=== PATIENT | male | born 1950 | race Caucasian/White ===

== ENCOUNTER 2019-02-06 06:44 | Day surgery (SDC) | payer MEDICARE ==
--- NOTE | 2019-02-04 14:07 | RAD REPORT ---
EXAM DESCRIPTION: RAD - Chest Pa And Lat (2 Views) - 02/04/2019 1:57 pm CLINICAL HISTORY: preop Chest pain. COMPARISON: CHEST PA AND LAT 2 VIEW dated 11/09/2011; CHEST SINGLE VIEW dated 03/23/2005 FINDINGS: The lungs are clear. The heart is normal in size. No displaced fractures. IMPRESSION: No acute or concerning finding suspected.
[2019-02-04 14:19] LABS: Absolute Lymphocytes (CBC) 2.4 K/uL (0.7-4.9); Basophils % 0.8 % (0-1.3); Hematocrit 49.3 % (39.6-49.0); Lymphocytes % 26.7 % (15.3-44.8); MPV 8.5 fL (7.6-11.3); RBC Red Blood Cell Count 5.07 M/uL (4.33-5.43)
[2019-02-04 14:34] LABS: BUN Blood Urea Nitrogen 20 mg/dL (7-18); Bicarbonate 31 mmol/L (21-32); Glucose Level 85 mg/dL (74-106); Potassium 4.3 mmol/L (3.5-5.1); Sodium Level 143 mmol/L (136-145)
--- OUTSIDE RECORDS SUMMARY | 2019-02-06 06:46 | XMS REPORT ---
:1950 Author Organization e[employer] Care Team Providers Name Role Phone RowellLaurynh Provider Role Unavailable Allergies No Known Allergies Problems Problem Type Condition Code Onset Dates Condition Status Problem Tobacco use disorder F17.200 Active Problem Cannabis use disorder, mild F12.10 Active Problem Chronic obstructive pulmonary J44.9 Active disease Problem Adult BMI 35.0-35.9 kg/sq m Z68.35 Active Problem Microalbuminuria R80.9 Active Problem Tobacco use disorder, continuous F17.209 Active Problem Obstructive sleep apnea G47.33 Active Problem Vitamin B 12 deficiency E53.8 Active Problem Benign essential HTN I10 Active Problem Diabetes type 2, controlled E11.9 Active Problem Uncontrolled type 2 diabetes E11.65 Active mellitus with hyperglycemia, unspecified whether lobsterman insulin use Problem Hyperlipidemia, unspecified E78.5 Active hyperlipidemia type Assessment Hepatitis B surface antigen R76.8 Active positive Problem Osteoarthritis of multiple joints M15.9 Active Medications No Known Medications Results No Known Results Summary Purpose [employer] Submission
--- OUTSIDE RECORDS SUMMARY | 2019-02-06 06:46 | XMS REPORT ---
:1950 Author Organization [employer]Works Care Team Providers Name Role Phone Jack Rowell Provider Role Unavailable Allergies, Adverse Reactions, Alerts Substance Reaction Event Type N.K.D.A. Info Not Available Non Drug Allergy Problems Problem Type Condition Code Onset Dates Condition Status Problem Tobacco use disorder F17.200 Active Problem Cannabis use disorder, mild F12.10 Active Problem Chronic obstructive pulmonary J44.9 Active disease Problem Adult BMI 35.0-35.9 kg/sq m Z68.35 Active Assessment Need for pneumococcal vaccine Z23 Active Problem Microalbuminuria R80.9 Active Assessment DNR (do not resuscitate) Z66 Active Assessment Advanced directives, Z71.89 Active counseling/discussion Problem Tobacco use disorder, continuous F17.209 Active Problem Obstructive sleep apnea G47.33 Active Problem Vitamin B 12 deficiency E53.8 Active Problem Benign essential HTN I10 Active Problem Diabetes type 2, controlled E11.9 Active Assessment Tobacco use disorder, continuous F17.209 Active Assessment Screening for AAA (abdominal aortic Z13.6 Active aneurysm) Assessment Screening for colon cancer Z12.11 Active Assessment Screening for osteoporosis Z13.820 Active Problem Uncontrolled type 2 diabetes E11.65 Active mellitus with hyperglycemia, unspecified whether fci insulin use Assessment Encounter for screening for other Z11.59 Active viral diseases Problem Hyperlipidemia, unspecified E78.5 Active hyperlipidemia type Assessment Well adult on routine health check Z00.00 Active Problem Osteoarthritis of multiple joints M15.9 Active Medications Medication Code Code Instructions Start End Status Dosage System Date Date Metformin HCl ND 92631365371 1000 MG Orally Active 1 tablet Twice a day with meals Ventolin HFA ND 38460050093 90 MCG/ACT Active 2 puffs as Inhalation every needed 6 hrs Simvastatin ND 51792536297 10 MG Orally Active 1 tablet Once a day in the evening GlipiZIDE ND 24902619742 5 MG Orally Once Active 1 tablet a day Lisinopril ND 07555897933 10 MG Orally Active 1 tablet Once a day Bevespi ND 15865841978 9-4.8 MCG/ACT Active 2 puffs Aerosphere Inhalation Twice a day Viagra [facility] 78268761006 100 MG Orally Active 1 tablet Once a day as needed Results No Known Results Immunizations Vaccine Administration Date PNEUMAVAX Jul 04, 2018 Summary Purpose [employer]ClinicalWorks Submission
--- OUTSIDE RECORDS SUMMARY | 2019-02-06 06:46 | XMS REPORT ---
:1950 Author Organization eClinicalWorks Care Team Providers Name Role Phone Jack Rowell Provider Role Unavailable Allergies, Adverse Reactions, Alerts Substance Reaction Event Type N.K.D.A. Info Not Available Non Drug Allergy Problems Problem Type Condition Code Onset Dates Condition Status Problem Osteoarthritis of multiple joints M15.9 Active Problem Chronic obstructive pulmonary J44.9 Active disease Problem Tobacco use disorder F17.200 Active Problem Microalbuminuria R80.9 Active Assessment Hyperlipidemia, unspecified E78.5 Active hyperlipidemia type Problem Benign essential HTN I10 Active Assessment Adult BMI 35.0-35.9 kg/sq m Z68.35 Active Assessment Need for influenza vaccination Z23 Active Problem Adult BMI 35.0-35.9 kg/sq m Z68.35 Active Problem Vitamin B 12 deficiency E53.8 Active Problem Cannabis use disorder, mild F12.10 Active Problem Diabetes type 2, controlled E11.9 Active Problem Obstructive sleep apnea G47.33 Active Assessment Benign essential HTN I10 Active Assessment Microalbuminuria R80.9 Active Assessment Cannabis use disorder, mild F12.10 Active Assessment Obstructive sleep apnea G47.33 Active Assessment Chronic obstructive pulmonary J44.9 Active disease Assessment Tobacco use disorder F17.200 Active Problem Uncontrolled type 2 diabetes E11.65 Active mellitus with hyperglycemia, unspecified whether meterman insulin use Assessment Need for pneumococcal vaccine Z23 Active Assessment Uncontrolled type 2 diabetes E11.65 Active mellitus with hyperglycemia, unspecified whether meterman insulin use Problem Hyperlipidemia, unspecified E78.5 Active hyperlipidemia type Medications Medication Code Code Instructions Start End Status Dosage System Date Date GlipiZIDE [facility] 42924887889 5 MG Orally Inactive 1 tablet Once a day Metformin HCl [facility] 32454938897 1000 MG Orally Active 1 tablet Twice a day with meals Viagra [facility] 30905859202 100 MG Orally Active 1 tablet Once a day as needed Bevespi [facility] 76877735727 9-4.8 MCG/ACT Jun 29, Active 2 puffs Aerosphere Inhalation 2019 Twice a day Chantix [facility] [address]-97 0.5 MG X 11 & 1 Inactive not Starting Month MG X 42 Orally defined Niels Lisinopril [facility] 18062965959 10 MG Orally Active 1 tablet Once a day Simvastatin [facility] 70028831915 10 MG Orally Active 1 tablet Once a day in the evening Lisinopril [facility] 40031620656 10 MG Orally Active 1 tablet Once a day Ventolin HFA [facility] 26584503531 90 MCG/ACT Active 2 puffs Inhalation as needed every 6 hrs Simvastatin [facility] 78291807909 10 MG Orally Active 1 tablet Once a day in the evening GlipiZIDE [facility] 66625014248 5 MG Orally Active 1 tablet Once a day Results No Known Results Immunizations Vaccine Administration Date FluAD Mar 01, 2018 Prevnar 13 -Pneumonia Vaccine Mar 01, 2018 Summary Purpose eClinicalWorks Submission
--- OUTSIDE RECORDS SUMMARY | 2019-02-06 06:46 | XMS REPORT ---
:1950 Author Organization eClinicalWorks Care Team Providers Name Role Phone Sorin Jack Provider Role Unavailable Allergies, Adverse Reactions, Alerts [...] BMI 35.0-35.9 kg/sq m Z68.35 Active Problem Adult BMI 35.0-35.9 kg/sq m [...] E11.65 Active mellitus with hyperglycemia, unspecified whether terminologist insulin use Assessment Uncontrolled type 2 diabetes E11.65 Active mellitus with hyperglycemia, unspecified whether terminologist insulin use Problem Hyperlipidemia, unspecified E78.5 Active hyperlipidemia type Medications Medication Code Code Instructions Start End Status Dosage System Date Date Bevespi [facility]NOTE 2] 38248967746 9-4.8 MCG/ACT Active 2 puffs Aerosphere Inhalation Twice a day Simvastatin [facility]NOTE 2] 07743178795 10 MG Orally Active 1 tablet Once a day in the evening Simvastatin [facility]NOTE 2] 53079950579 10 MG Orally Active 1 tablet Once a day in the evening GlipiZIDE [facility]NOTE 2] 78309136624 5 MG Orally Once Active 1 tablet a day Metformin HCl [facility]NOTE 2] 00714968840 1000 MG Orally Active 1 tablet Twice a day with meals Viagra [facility]NOTE 2] 45762847231 100 MG Orally Active 1 tablet Once a day as needed Lisinopril [facility]NOTE 2] 80706287904 10 MG Orally Active 1 tablet Once a day Ventolin HFA [facility][NOTE 2] 34992510194 90 MCG/ACT Active 2 puffs as Inhalation every needed 6 hrs Results No Known Results Summary Purpose [employer]ClinicalWorks Submission
--- OUTSIDE RECORDS SUMMARY | 2019-02-06 06:47 | XMS REPORT ---
:1950 Author Organization eClinicalWorks Care Team Providers Name Role Phone Sorin Jack Provider Role Unavailable Allergies No Known Allergies Problems Problem Type Condition Code Onset Dates Condition Status Problem Chronic obstructive pulmonary J44.9 Active disease Problem Vitamin B 12 deficiency E53.8 Active Problem Cannabis use disorder, mild F12.10 Active Problem Uncontrolled type 2 diabetes E11.65 Active mellitus with hyperglycemia, unspecified whether long-term insulin use Problem Hyperlipidemia, unspecified E78.5 Active hyperlipidemia type Problem Osteoarthritis of multiple joints M15.9 Active Problem Tobacco use disorder F17.200 Active Problem Tobacco use disorder, continuous F17.209 Active Problem Adult BMI 35.0-35.9 kg/sq m Z68.35 Active Problem Chronic hepatitis B virus infection B18.1 Active Problem Diabetes type 2, controlled E11.9 Active Problem Obstructive sleep apnea G47.33 Active Problem Microalbuminuria R80.9 Active Problem Benign essential HTN I10 Active Medications No Known Medications Results No Known Results Summary Purpose [employer] Submission
--- OUTSIDE RECORDS SUMMARY | 2019-02-06 06:47 | XMS REPORT ---
:1950 Author Organization eClinicalWorks Care Team Providers Name Role Phone Lauryn Rowellh Provider Role Unavailable Allergies, Adverse Reactions, Alerts Substance Reaction Event Type N.K.D.A. Info Not Available Non Drug Allergy Problems Problem Type Condition Code Onset Dates Condition Status Problem Tobacco use disorder F17.200 Active Problem Cannabis use disorder, mild F12.10 Active Problem Chronic obstructive pulmonary J44.9 Active disease Problem Adult BMI 35.0-35.9 kg/sq m Z68.35 Active Assessment Obstructive sleep apnea G47.33 Active Problem Microalbuminuria R80.9 Active Assessment Cannabis use disorder, mild F12.10 Active Assessment Hyperlipidemia, unspecified E78.5 Active hyperlipidemia type Problem Tobacco use disorder, continuous F17.209 Active Problem Obstructive sleep apnea G47.33 Active Problem Vitamin B 12 deficiency E53.8 Active Problem Benign essential HTN I10 Active Problem Diabetes type 2, controlled E11.9 Active Assessment Tobacco use disorder F17.200 Active Assessment Uncontrolled type 2 diabetes E11.65 Active mellitus with hyperglycemia, unspecified whether ocean transportation intermediary insulin use Assessment Benign essential HTN I10 Active Assessment Microalbuminuria R80.9 Active Problem Uncontrolled type 2 diabetes E11.65 Active mellitus with hyperglycemia, unspecified whether snf insulin use Assessment Hepatitis B surface antigen R76.8 Active positive Problem Hyperlipidemia, unspecified E78.5 Active hyperlipidemia type Assessment Adult BMI 35.0-35.9 kg/sq m Z68.35 Active Assessment Chronic obstructive pulmonary J44.9 Active disease Problem Osteoarthritis of multiple joints M15.9 Active Medications Medication Code Code Instructions Start End Status Dosage System Date Date Lisinopril ND 36855565343 10 MG Orally Active 1 tablet Once a day Simvastatin ND 67096950296 10 MG Orally Active 1 tablet Once a day in the evening Ventolin HFA ND 69813325215 90 MCG/ACT Active 2 puffs as Inhalation every needed 6 hrs Bevespi ND 63788576342 9-4.8 MCG/ACT Active 2 puffs Aerosphere Inhalation Twice a day Metformin HCl ND 16613381049 1000 MG Orally Active 1 tablet Twice a day with meals Lisinopril [facility] 74214264417 10 MG Orally Active 1 tablet Once a day GlipiZIDE [facility] 54150400253 5 MG Orally Once Active 1 tablet a day Results No Known Results Summary Purpose [employer]ClinicalWorks Submission
--- OUTSIDE RECORDS SUMMARY | 2019-02-06 06:47 | XMS REPORT ---
:1950 Author Organization eClinicalWorks Care Team Providers Name Role Phone Lauryn Rowellh Provider Role Unavailable Allergies, Adverse Reactions, Alerts Substance Reaction Event Type N.K.D.A. Info Not Available Non Drug Allergy Problems Problem Type Condition Code Onset Dates Condition Status Assessment Single skin nodule R22.9 Active Problem Osteoarthritis of multiple joints M15.9 Active Assessment Adult BMI 27.0-27.9 kg/sq m Z68.27 Active Problem Tobacco use disorder F17.200 Active Assessment Hyperlipidemia, unspecified E78.5 Active hyperlipidemia type Problem Chronic obstructive pulmonary J44.9 Active disease Problem Vitamin B 12 deficiency E53.8 Active Problem Cannabis use disorder, mild F12.10 Active Problem Tobacco use disorder, continuous F17.209 Active Problem Adult BMI 35.0-35.9 kg/sq m Z68.35 Active Assessment Benign essential HTN I10 Active Assessment Obstructive sleep apnea G47.33 Active Problem Chronic hepatitis B virus infection B18.1 Active Assessment Cannabis use disorder, mild F12.10 Active Problem Diabetes type 2, controlled E11.9 Active Problem Obstructive sleep apnea G47.33 Active Problem Microalbuminuria R80.9 Active Problem Benign essential HTN I10 Active Assessment Uncontrolled type 2 diabetes E11.65 Active mellitus with hyperglycemia, unspecified whether fpc insulin use Assessment Hepatitis B surface antigen R76.8 Active positive Assessment Microalbuminuria R80.9 Active Assessment Tobacco use disorder F17.200 Active Problem Uncontrolled type 2 diabetes E11.65 Active mellitus with hyperglycemia, unspecified whether termite exterminator insulin use Problem Hyperlipidemia, unspecified E78.5 Active hyperlipidemia type Assessment Chronic obstructive pulmonary J44.9 Active disease Medications Medication Code Code Instructions Start End Status Dosage System Date Date Ventolin HFA [facility] 35487821346 90 MCG/ACT Active 2 puffs as Inhalation every needed 6 hrs Metformin HCl [facility] 66781153770 1000 MG Orally Active 1 tablet Twice a day with meals Metformin HCl [facility] 23573686931 1000 MG Orally Active 1 tablet Twice a day with meals Simvastatin [facility] 35291648308 10 MG Orally Active 1 tablet Once a day in the evening Bevespi [facility] 84807856133 9-4.8 MCG/ACT Apr 27, Active 2 puffs Aerosphere Inhalation Twice 2019 a day Lisinopril [facility] 31718188127 10 MG Orally Active 1 tablet Once a day GlipiZIDE [facility] 63215392851 5 MG Orally Once Active 1 tablet a day Lisinopril [facility] 38817493092 10 MG Orally Active 1 tablet Once a day Results No Known Results Summary Purpose eClinicalWorks Submission
--- OUTSIDE RECORDS SUMMARY | 2019-02-06 06:47 | XMS REPORT ---
:1950 Author Organization eClinicalWorks Care Team Providers Name Role Phone Jack Rowell Provider Role Unavailable Allergies No Known Allergies [...] Problem Benign essential HTN I10 Active Assessment Chronic obstructive pulmonary J44.9 Active disease Problem Uncontrolled type 2 diabetes E11.65 Active mellitus with hyperglycemia, unspecified whether mcfp insulin use Problem Hyperlipidemia, unspecified E78.5 Active hyperlipidemia type Assessment Chronic hepatitis B virus infection B18.1 Active Problem Osteoarthritis of multiple joints M15.9 Active Problem Tobacco use disorder F17.200 Active Medications Medication Code Code Instructions Start End Date Status Dosage [facility] 9-4.8 MCG/ACT Active 2 puffs Aerosphere Inhalation Twice a day Results No Known Results Summary Purpose eClinicalWorks Submission
[2019-02-06] MEDS: NA CHLORIDE 0.9% 1,000 ML ONE ×2 (07:33→07:51)
[2019-02-06] MEDS ORDERED: MIDAZOLAM HCL 2 MG/2 ML INJ ONE (07:49)
[2019-02-06] MEDS ORDERED: LIDOCAINE 2% MPF 5 ML VIAL ONE (07:49)
[2019-02-06] MEDS ORDERED: PROPOFOL 200 MG/20 ML VIAL IV ONE (07:49)
[2019-02-06] MEDS ORDERED: FENTANYL CITR 100 MCG/2 ML ONE (07:49)
[2019-02-06] MEDS ORDERED: ROCURONIUM 50 MG/5 ML VIAL IV ONE (07:49)
[2019-02-06] MEDS ORDERED: CEFAZOLIN/SWI 1gm 1 GM/10 ML SYR ONE (07:51)
[2019-02-06] MEDS ORDERED: ONDANSETRON 4 MG/2 ML VIAL ONE (08:37)
[2019-02-06 09:21] VITALS: O2SAT 96
[2019-02-06 10:07] VITALS: BP 117/65; TEMP 97.8
--- NOTE | 2019-02-06 14:34 | OP ---
Surgeon: Chaparro Brown MD Diagnosis: Left breast mass with skin involvement. Procedure: Left breast lumpectomy. Disposition: Home. Activity: As tolerated. No heavy lifting. Followup: Follow up in my office in 1 week. Call for appointment [phone]. Keep area dry for 48 ho urs, then may shower. Keep Steri-Strips intact. Medications: See orders. JORGE LUIS/EDWINA Voice ID: [id number] Report ID: [id number]
--- NOTE | 2019-02-06 14:44 | OP ---
Date of Procedure: 02/06/2019 Surgeon: Chaparro Brown MD Preoperative Diagnosis: Left breast ulcerated mass. Postoperative Diagnosis: Left breast ulcerated mass. Procedure: Left breast lumpectomy. Anesthesia: Local. Indications: This is the case of a 68-year-old patient, comes to us with an ulcerated mass of the le ft breast region, involved part of the skin and part of the breast area. No previous lump in that re gion. It is getting redder on and off and he wants that excised. He understand the benefits, altern atives, and risks of lumpectomy which include, but not limited to infection, bleeding, damage to nellie cent structures, anesthesia complication, recurrence, MS, and even . He also understands this m ay not relieve the symptoms. He might need more than one surgical intervention. Some of the skin baig ve to be removed with the specimen and this included on the specimen. He understands we are doing th is because it is important to have a biopsy, but eventually if he allow us, we may have to do the for mal mammogram, although he preferred not to do it at this moment. He preferred to this first. In th at case, we will look him for the surgical intervention. He marked the area with me in the holding r oom. Description Of Procedure: Patient was brought to the operating room, placed in supine position. Ane sthesia was done without complication. Left breast was prepped and draped in sterile fashion. A wed ge incision was made on the skin after time-out was called. Incision was carried down to breast tiss ue. Specimen was marked for orientation. Area was irrigated profusely. I do not see any pus at thi s time. So, we proceeded to close the area by using 3-0 chromic. Steri-Strip over the area. Hemost asis was obtained before closure and also a local anesthetic was applied before closure. Patient tolerated the procedure well. Patient was sent to [place] [facility] in stable condition. JORGE LUIS/EDWINA Voice ID: [id number] Report ID: [id number]
--- NOTE | 2019-02-06 15:59 | EKG ---
Test Date: 2019-02-04 Test Time: 13:52:36 Traffic Or System Dispatcher: TATE MEASUREMENT RESULTS: Intervals: Rate: 54 MO: 182 QRSD: 86 QT: 418 QTc: 396 [place]: P: 53 MO: 182 QRS: 67 T: 62 INTERPRETIVE STATEMENTS: Sinus bradycardia Otherwise normal ECG Compared to ECG 03/17/2005 11:00:00 Sinus rhythm no longer present Right-axis deviation no longer present Myocardial infarct finding no longer present T-wave abnormality no longer present Possible ischemia no longer present Electronically Signed On 02-06-19 15:54:45 CDT by Carl Mercedes
== END 2019-02-06 10:05 | disposition home or self-care (01) ==
LOC: OR 06:44
PROVIDERS: ATTEND Surgery
PROC: 0HBU0ZZ Excision of Left Breast, Open Approach (ICD-10-PCS; principal; 2019-02-06 08:15)
DX: N63.24 Unspecified lump in the left breast, lower inner quadrant (principal); L85.8 Other specified epidermal thickening; E11.9 Type 2 diabetes mellitus without complications; I10 Essential (primary) hypertension; J43.9 Emphysema, unspecified; J44.9 Chronic obstructive pulmonary disease, unspecified; F17.210 Nicotine dependence, cigarettes, uncomplicated
CPT/HCPCS: 36415; 71046; 80048; 82962; 85025; 88305; 93005; J0690; J2250; J2405; J2704; J3010; J7030

== ENCOUNTER 2021-07-22 09:31 | Inpatient (IN) | payer MEDICARE, OTHER ==
--- OUTSIDE RECORDS SUMMARY | 2021-07-22 09:33 | XMS REPORT | Continuity of Care Document ---
:1950 Author Organization [facility] t Address [address] [place] [address] Care Team Providers Name Role Phone Ewelina Rowell Attending Clinician Unavailable Problems This patient has no known problems. Allergies, Adverse Reactions, Alerts This patient has no known allergies or adverse reactions. Medications Ordered Filled Start Stop Current Ordering Indication Dosage Frequency Signature Comments Components Source Medication Medication Date Date Medication? Clinician (SIG) Name Name Ventolin Ventolin Yes Jack [address] [facility] HFA HFA Rowell needed [facility] Lisinopril Lisinopril Yes Jack [address] [facility] Rowell [facility] Metformin Metformin Yes Jack [address] [facility] HCl HCl Rowell with meals [facility] Simvastatin Simvastatin Yes Jack TAKE [address] [facility] Rowell TABLET BY [facility] l [facility] Bevespi Bevespi Yes Jack [address] [facility] [employer] Rowell [facility] Metformin Metformin Yes Jack [address] [facility] HCl HCl Rowell with meals [facility] Immunizations Ordered Filled Immunization Date Status Comments Sourc e Immunization Name Name FluAD FluAD 2019-04-[address] [facility] PNEUMAVAX 23 PNEUMAVAX 23 2018-07-[address] [facility]00 [facility] FluAD FluAD 2018-03-[address] [facility]00 [facility] Prevnar 13 Prevnar 13 2018-03-[address] [facility] - -Pneumonia Vaccine -Pneumonia Vaccine 00:00:00 [facility] Procedures This patient has no known procedures. Encounters Start End Encounter Admission Attending Care Care Encounter Source Date/Time Date/Time Type Type Clinicians Facility Department ID 2021-06-23 Outpatient NAIDA Rowell [facility] [id number] [facility] 12:22:58 Jack [id number] [facility] 2021-06-[address] SorinJOSSELYN [facility] [id number] [facility] [address] 11:17:26 Jack [id number] [facility] 2021-06-23 Outpatient Sorin [facility] [id number] [facility] [address] 11:16:19 Jack [id number] [facility] 2021-03-25 2021-03-25 Outpatient [facility] [id number] [facility] 2020-12-28 2020-12-28 Outpatient [facility] [id number] [facility] 2020-12-23 2020-12-23 [facility] [id number] [facility] 2020-09-22 2020-09-22 [facility] [id number] [facility] 2020-06-18 2020-06-18 Outpatient [facility] [id number] [facility] 2020-03-02 2020-03-02 [facility] [id number] [facility] 2019-11-28 2019-11-28 [facility] [id number] [facility] 08:00:00 08:00:00 [employer] [facility] 2019-09-03 2019-09-03 [facility] [id number] [address] 14:45[facility] 14:45:[address] [place] [address] [facility] [address] [facility] l Medicine Outpati ent Clinics 2019-07-31 2019-07-31 [facility] [id number] [address] 08:45:00 08:45:00 [place] [email or web address] [facility] - [facility] Medicine l Medicine Outpati ent Clinics 2019-04-01 2019-04-01 [facility] [id number] 08:45:00 08:45:00 [place] [email or web address] [place] [facility] - Drive [facility] l Medicine Outpati ent Clinics 2018-12-28 2018-12-28 [facility] [id number] 08:00:00 08:00:00 [place] [email or web address] s - Drive [facility] Medicine l Medicine Outpati ent Clinics 2018-11-09 2018-11-09 [facility] [id number] 07:31:00 07:31:00 [place] [address] s - Drive [facility] Medicine l Medicine Outpati ent Clinics 2018-09-28 2018-09-28 [facility] [id number] 07:32:00 07:32:00 [place] [email or web address] [facility] - Drive [facility] Medicine l Medicine Outpati ent Clinics 2018-09-27 2018-09-27 [facility] [id number] 08:30:00 08:30:00 [place] [email or web address] [facility] - Drive [facility] Medicine l Medicine Outpati ent Clinics 2018-09-26 2018-09-26 [facility] [id number] 09:29:00 09:29:00 [place] [email or web address] [facility] - Drive [facility] Medicine l Medicine Outpati ent Clinics 2018-07-04 2018-07-04 [facility] [id number] 09:00:00 09:00:00 [place] [email or web address] [facility] - Drive [facility] Medicine l Medicine Outpati ent Clinics 2018-06-01 2018-06-01 [facility] [id number] 08:45:00 08:45:00 [place] [email or web address] [facility] - Drive [facility] Medicine l Medicine Outpati ent Clinics 2018-03-01 2018-03-01 Outpatient Juani Vasquez [id number] 08:15:00 08:15:00 [email or web address] [facility] [place] ent Clinics Results This patient has no known results.
[2021-07-22] MEDS ORDERED: ALBUTEROL 2.5 MG/3 ML NEB SOL ONE (10:16)
[2021-07-22] MEDS ORDERED: IPRATROPIUM BROM 0.5MG/2.5ML ONE (10:16)
[2021-07-22 10:19] LABS: Absolute Lymphocytes (CBC) 0.8 K/uL (0.7-4.9); Hematocrit 54.3 % (39.6-49.0); Lymphocytes % 8.4 % (15.3-44.8); MPV 7.8 fL (7.6-11.3); RBC Red Blood Cell Count 5.54 M/uL (4.33-5.43)
[2021-07-22 10:22] LABS: Protime INR 1.16
[2021-07-22 10:37] LABS: Albumin 3.1 g/dL (3.4-5.0); Bilirubin Direct 0.3 mg/dL (0-0.2); Bilirubin Total 0.6 mg/dL (0.2-1.0); Magnesium 2.5 mg/dL (1.8-2.4); Potassium 4.9 mmol/L (3.5-5.1); Protein, Total 7.1 g/dL (6.4-8.2); Troponin High Sensitivity 34.4 pg/mL (<58.9)
--- NOTE | 2021-07-22 10:47 | RAD REPORT ---
EXAM DESCRIPTION: RAD - Chest Single View - 07/22/2021 10:42 am CLINICAL HISTORY: SOB COMPARISON: Two view chest January 2009 TECHNIQUE: AP portable chest image was obtained 07/22/2021 10:42 am . FINDINGS: No focal mass or consolidation. Increased interstitial opacification present in each base could be atelectasis, lung base edema or infiltrate. Upper lobe vasculature within normal limits. Hea rt size normal limits for portable imaging. No pneumothorax or large pleural effusion. No acute bony abnormality seen. No acute aortic findings suspected. IMPRESSION: Bibasilar interstitial opacification suspicious for edema or infiltrate. Findings are mo re prominent than typical atelectasis.
--- NOTE | 2021-07-22 13:38 | EDPHYS ---
Physician Documentation [facility] Name: Rigoberto Del Rosario Age: 71 yrs Sex: Male : 1950 Arrival Date: 07/22/2021 Time: 09:36 Bed 8 Private MD: ED Physician Nelson Keita HPI: 07/22 19:15 This 71 yrs old Male presents to ER via Ambulatory with complaints of Shortness Of kdr Breath. 19:15 The patient has shortness of breath at rest, with light activity. Onset: The kdr symptoms/episode began/occurred gradually, 2 week(s) ago. Duration: The symptoms are continuous, and are unchanged since they started. The patient's shortness of breath is aggravated by walking, Standing. Associated signs and symptoms: Pertinent positives: Pertinent negatives: chest pain, non-productive cough, productive cough, diaphoresis, dizziness, fever, hemoptysis, loss of consciousness, nausea, numbness in extremities, visual changes, vomiting. Severity of symptoms: At their worst the symptoms were mild moderate just prior to arrival, in the emergency department the symptoms are unchanged. The patient has experienced similar episodes in the past, a few times. The patient has not recently seen a physician. Patient states that when he gets out of bed and stands at the bedside he becomes severely short of breath.. Historical: - Allergies: 09:42 No Known Allergies; tw2 - Home Meds: 09:42 simvastatin 10 mg Oral tab 1 tab once daily [Active]; Breo Ellipta 200-25 mcg/dose tw2 inhalation dsdv 1 puff once daily [Active]; albuterol sulfate 1.25 mg/3 mL Inhl nebu 3 mL 3 times per day [Active]; lisinopril 10 mg Oral tab 1 tab once daily [Active]; metformin 1,000 mg Oral tab 1 tab once a day [Active]; OTC water pill, since monday twice a day [Active]; 09:46 meloxicam 7.5 mg oral tab 1 tab once daily [Active]; tw2 - PMHx: 09:42 COPD; Hypertensive disorder; Diabetes mellitus; tw2 - Immunization history:: Client reports receiving the 2nd dose of the Covid vaccine, Flu vaccine is up to date. - Social history:: Smoking status: Patient reports the use of cigarette tobacco products, smokes two packs cigarettes per day. Patient uses alcohol, 3 tsps in my coffee daily. street drugs, marijuana, daily. ROS: 19:15 Constitutional: Negative for fever, chills, and weight loss, Eyes: Negative for injury, kdr pain, redness, and discharge, Neck: Negative for injury, pain, and swelling, Cardiovascular: Negative for chest pain, palpitations, and edema, Abdomen/GI: Negative for abdominal pain, nausea, vomiting, diarrhea, and constipation, Back: Negative for injury and pain, : Negative for injury, bleeding, discharge, and swelling, MS/Extremity: Negative for injury and deformity, Skin: Negative for injury, rash, and discoloration, Neuro: Negative for headache, weakness, numbness, tingling, and seizure activity. Psych: Negative for depression, anxiety, suicide ideation, homicidal ideation, and hallucinations, Allergy/Immunology: Negative for hives, rash, and allergies, Endocrine: Negative for neck swelling, polydipsia, polyuria, polyphagia, and marked weight changes, Hematologic/Lymphatic: Negative for swollen nodes, abnormal bleeding, and unusual bruising. 19:15 Respiratory: Positive for dyspnea on exertion, shortness of breath, on exertion. Negative for hemoptysis, orthopnea, sputum production. Exam: 12:24 ECG was reviewed by the Attending Physician. kdr 19:15 Constitutional: This is a well developed, well nourished patient who is awake, alert, kdr and in no acute distress. Head/Face: Normocephalic, atraumatic. Eyes: Pupils equal round and reactive to light, extra-ocular motions intact. Lids and lashes normal. Conjunctiva and sclera are non-icteric and not injected. Cornea within normal limits. Periorbital areas with no swelling, redness, or edema. Neck: Trachea midline, no thyromegaly or masses palpated, and no cervical lymphadenopathy. Supple, full range of motion without nuchal rigidity, or vertebral point tenderness. No Meningismus. Chest/axilla: Normal chest wall appearance and motion. Nontender with no deformity. No lesions are appreciated. Cardiovascular: Regular rate and rhythm with a normal S1 and S2. No gallops, murmurs, or rubs. Normal PMI, no JVD. No pulse deficits. Abdomen/GI: Soft, non-tender, with normal bowel sounds. No distension or tympany. No guarding or rebound. No evidence of tenderness throughout. Back: No spinal tenderness. No costovertebral tenderness. Full range of motion. Skin: Warm, dry with normal turgor. Normal color with no rashes, no lesions, and no evidence of cellulitis. MS/ Extremity: Pulses equal, no cyanosis. Neurovascular intact. Full, normal range of motion. Neuro: Awake and alert, GCS 15, oriented to person, place, time, and situation. Cranial nerves II-XII grossly intact. Motor strength 5/5 in all extremities. Sensory grossly intact. Cerebellar exam normal. Normal gait. Psych: Awake, alert, with orientation to person, place and time. Behavior, mood, and affect are within normal limits. 19:15 Respiratory: the patient does not display signs of respiratory distress, Respirations: normal, Breath sounds: rales, that are mild, are heard diffusely. Vital Signs: 09:36 BP 155 / 76; Pulse 84; Resp 20; Temp 97.7(TE); Pulse Ox 84% on R/A; Weight 111.13 kg tw2 (R); Height 5 ft. 7 in. (170.18 cm); Pain 9/10; 09:55 BP 112 / 69; Pulse 71; Resp 11; Pulse Ox 99% on R/A; jg9 10:30 BP 98 / 61; Pulse 66; Resp 20 S; Pulse Ox 100% on 2 lpm NC; jg9 11:00 BP 113 / 77; Pulse 85; Resp 20 S; Pulse Ox 100% ; jg9 11:35 BP 112 / 57; Pulse 72; Resp 18; Pulse Ox 96% on 2 lpm NC; baig 12:20 BP 92 / 51; Pulse 73; Resp 18; Pulse Ox 98% on 2 lpm NC; baig 13:30 BP 98 / 71; Pulse 80; Resp 17 S; Pulse Ox 96% on 2 lpm NC; jg9 14:00 BP 116 / 49; Pulse 73; Resp 20 S; Pulse Ox 96% on 2 lpm NC; jg9 14:30 BP 107 / 64; Pulse 75; Resp 20 S; Pulse Ox 94% on 2 lpm NC; jg9 15:00 BP 101 / 61; Pulse 69; Resp 20 S; Pulse Ox 97% on 2 lpm NC; jg9 17:00 BP 116 / 68; Pulse 81; Resp 20 S; Pulse Ox 94% on 2 lpm NC; jg9 09:36 Body Mass Index 38.37 (111.13 kg, 170.18 cm) tw2 09:36 pt placed on 3L nc, up to 99% at this time. tw2 MDM: 13:37 Patient medically screened. kdr 19:15 Data reviewed: vital signs, nurses notes, lab test result(s), radiologic studies. kdr Counseling: I had a detailed discussion with the patient and/or guardian regarding: the historical points, exam findings, and any diagnostic results supporting the discharge/admit diagnosis, lab results, radiology results, the need for outpatient follow up. 07/22 09:56 Order name: Basic Metabolic Panel [facility] 07/22 09:56 Order name: CBC with Diff; Complete Time: 13:25 kdr 07/22 09:56 Order name: LFT's; Complete Time: 13:25 kdr 07/22 09:56 Order name: Magnesium; Complete Time: 13:25 kdr 07/22 09:56 Order name: NT PRO-BNP; Complete Time: 13:25 kdr 07/22 09:56 Order name: PT-INR; Complete Time: 13:25 kdr 07/22 09:56 Order name: Troponin HS; Complete Time: 13:25 kdr 07/22 09:56 Order name: Basic Metabolic Panel; Complete Time: 13:25 EDMS 07/22 11:58 Order name: COVID-19 SARS RT PCR (Document "Date of Onset" if Symptomatic); Complete baig Time: :07/22 16:54 Order name: CBC with Automated Diff [facility]WA 07/22 16:54 Order name: CBC with Automated Diff EDMS 07/22 16:54 Order name: Comprehensive Metabolic Panel EDWA 07/22 16:54 Order name: Comprehensive Metabolic Panel EDMS 07/22 16:54 Order name: Lipid Profile EDMS 07/22 09:56 Order name: XRAY Chest (1 view); Complete Time: 13:25 kdr 07/22 09:56 Order name: EKG; Complete Time: 09:56 kdr 07/22 13:52 Order name: Diet Heart Healthy; Complete Time: 13:53 baig 07/22 16:54 Order name: Lipid Profile EDMS 07/22 16:54 Order name: Magnesium EDMS 07/22 16:54 Order name: Magnesium EDMS 07/22 16:54 Order name: NT PRO-BNP [facility] 07/22 16:54 Order name: NT PRO-BNP [facility] 07/22 16:54 Order name: Phosphorus [facility] 07/22 16:54 Order name: Phosphorus [facility] 07/22 16:54 Order name: T4 Free [facility] 07/22 16:54 Order name: T4 Free [facility] 07/22 16:54 Order name: Thyroid Stimulating Hormone [facility] 07/22 16:54 Order name: Thyroid Stimulating Hormone [facility] 07/22 09:56 Order name: Cardiac monitoring; Complete Time: 10:14 [facility] 07/22 09:56 Order name: EKG - Nurse/Tech; Complete Time: 10:50 [facility] 07/22 09:56 Order name: IV Saline Lock; Complete Time: 10:14 [facility] 07/22 09:56 Order name: Labs collected and sent; Complete Time: 10:14 [facility] 07/22 09:56 Order name: O2 Per Protocol; Complete Time: 10:15 [facility] 07/22 09:56 Order name: O2 Sat Monitoring; Complete Time: 10:10 [facility] 07/22 16:54 Order name: CONS Physician Consult [facility] EC:24 Rate is 75 beats/min. Rhythm is regular, Sinus arrythmia with No ectopy. QRS [place] is kdr Normal. DC interval is normal. QRS interval is normal. Clinical impression: Sinus arrythmia. Administered Medications: 10:14 Drug: Albuterol - atroVENT (ipratropium) (3:1) (2.5 mg - 0.5 mg) 3 ml Route: Nebulizer; baig 10:14 Follow up: Response: No adverse reaction baig 13:45 Drug: Lasix (furosemide) 40 mg Route: IVP; Site: right antecubital; baig 13:46 Follow up: Response: No adverse reaction baig Disposition Summary: 07/22/21 13:37 Hospitalization Ordered Hospitalization Status: Inpatient Admission kdr Provider: Africa Espinoza Location: Telemetry/MedSurg (Inpatient) kdr Condition: Fair kdr Problem: an acute exacerbation kdr Symptoms: have worsened kdr Bed/Room Type: Standard kdr Room Assignment: 214(07/22/21 18:03) em1 Diagnosis - Shortness of breath kdr - Respiratory failure, unspecified with hypoxia - 83% on 2 L at rest kdr - Congestive heart failure kdr Forms: - Medication Reconciliation Form kdr - SBAR form kdr Signatures: Dispatcher [employer] EDNelson Edward MD MD kdr Martinez, Eric em1 Cuca Guevara RN RN tw2 Leonie Martinez RN RN baig Corrections: (The following items were deleted from the chart) 18:03 13:37 kdr em1
--- NOTE | 2021-07-22 13:38 | ER ---
Nurse's Notes [facility] Name: Rigoberto Del Rosario Age: 71 yrs Sex: Male : 1950 Arrival Date: 07/22/2021 Time: 09:36 Bed 8 Private MD: Diagnosis: Shortness of breath;Respiratory failure, unspecified with hypoxia-83% on 2 L at rest;Congestive heart failure Presentation: 07/22 09:36 Chief complaint: Patient states: about 2 weeks i have been feeling short of breath. i tw2 have been having fluid problems too. i took an otc fluid pill starting Monday, it helped some. i can lay flat, but walking or doing anything just kicks my butt. i just cant breathe. Coronavirus screen: fatigue, shortness of breath, Client presents with at least one sign or symptom that may indicate coronavirus-19. Standard/surgical mask placed on the client. Provider contacted for isolation considerations. Ebola Screen: Patient denies travel to an Ebola-affected area in the 21 days before illness onset. Initial Sepsis Screen: Does the patient meet any 2 criteria? RR > 20 per min. No. Patient's initial sepsis screen is negative. Does the patient have a suspected source of infection? No. Patient's initial sepsis screen is negative. Risk Assessment: Do you want to hurt yourself or someone else? Patient reports no desire to harm self or others. Onset of symptoms was July 22, 2021. 09:36 Method Of Arrival: Ambulatory tw2 09:36 Acuity: JANINA 2 tw2 Triage Assessment: 09:46 General: Appears in no apparent distress. obese, Behavior is calm, cooperative, tw2 appropriate for age. Pain: Denies pain. Respiratory: Reports shortness of breath on exertion Onset: The symptoms/episode began/occurred 2 weeks now, the patient has mild shortness of breath. Historical: - Allergies: 09:42 No Known Allergies; tw2 - Home Meds: 09:42 simvastatin 10 mg Oral tab 1 tab once daily [Active]; Breo Ellipta 200-25 mcg/dose tw2 inhalation dsdv 1 puff once daily [Active]; albuterol sulfate 1.25 mg/3 mL Inhl nebu 3 mL 3 times per day [Active]; lisinopril 10 mg Oral tab 1 tab once daily [Active]; metformin 1,000 mg Oral tab 1 tab once a day [Active]; OTC water pill, since monday twice a day [Active]; 09:46 meloxicam 7.5 mg oral tab 1 tab once daily [Active]; tw2 - PMHx: 09:42 COPD; Hypertensive disorder; Diabetes mellitus; tw2 - Immunization history:: Client reports receiving the 2nd dose of the Covid vaccine, Flu vaccine is up to date. - Social history:: Smoking status: Patient reports the use of cigarette tobacco products, smokes two packs cigarettes per day. Patient uses alcohol, 3 tsps in my coffee daily. street drugs, marijuana, daily. Screenin:54 Abuse screen: Denies threats or abuse. Denies injuries from another. Nutritional baig screening: No deficits noted. Tuberculosis screening: No symptoms or risk factors identified. Fall Risk Secondary diagnosis (15 points) impaired mobility. Assessment: 09:54 Cardiovascular: Reports shortness of breath, Rhythm is regular. Respiratory: Reports baig shortness of breath on exertion Airway is patent Respiratory effort is even, unlabored, Breath sounds are clear Breath sounds are diminished bilaterally. 13:35 Reassessment: took pt off O2 2l nc and O2 stats went to as low as 85%. put pt back on baig 2l NC, stood pt up and walked 5ft O2 stayed at 90%. provider aware. 14:00 Reassessment: 1000 mL of urine emptied from urinal. jg9 Vital Signs: 09:36 BP 155 / 76; Pulse 84; Resp 20; Temp 97.7(TE); Pulse Ox 84% on R/A; Weight 111.13 kg tw2 (R); Height 5 ft. 7 in. (170.18 cm); Pain 9/10; 09:55 BP 112 / 69; Pulse 71; Resp 11; Pulse Ox 99% on R/A; jg9 10:30 BP 98 / 61; Pulse 66; Resp 20 S; Pulse Ox 100% on 2 lpm NC; jg9 11:00 BP 113 / 77; Pulse 85; Resp 20 S; Pulse Ox 100% ; jg9 11:35 BP 112 / 57; Pulse 72; Resp 18; Pulse Ox 96% on 2 lpm NC; baig 12:20 BP 92 / 51; Pulse 73; Resp 18; Pulse Ox 98% on 2 lpm NC; baig 13:30 BP 98 / 71; Pulse 80; Resp 17 S; Pulse Ox 96% on 2 lpm NC; jg9 14:00 BP 116 / 49; Pulse 73; Resp 20 S; Pulse Ox 96% on 2 lpm NC; jg9 14:30 BP 107 / 64; Pulse 75; Resp 20 S; Pulse Ox 94% on 2 lpm NC; jg9 15:00 BP 101 / 61; Pulse 69; Resp 20 S; Pulse Ox 97% on 2 lpm NC; jg9 17:00 BP 116 / 68; Pulse 81; Resp 20 S; Pulse Ox 94% on 2 lpm NC; jg9 09:36 Body Mass Index 38.37 (111.13 kg, 170.18 cm) tw2 09:36 pt placed on 3L nc, up to 99% at this time. tw2 ED Course: 09:36 Patient arrived in ED. as 09:39 Triage completed. tw2 09:44 Nelson Keita MD is Attending Physician. kdr 09:47 Arm band placed on. tw2 09:54 Patient has correct armband on for positive identification. Bed in low position. baig 09:54 No provider procedures requiring assistance completed. baig 10:14 Basic Metabolic Panel Sent. baig 10:41 XRAY Chest (1 view) In Process Unspecified. EDMS 13:37 Africa Espinoza MD is Hospitalizing Provider. kdr 15:25 No apparent distress. sitting up in chair inside the room. jg9 17:35 Patient admitted, IV remains in place. jg9 Administered Medications: 10:14 Drug: Albuterol - atroVENT (ipratropium) (3:1) (2.5 mg - 0.5 mg) 3 ml Route: Nebulizer; baig 10:14 Follow up: Response: No adverse reaction baig 13:45 Drug: Lasix (furosemide) 40 mg Route: IVP; Site: right antecubital; baig 13:46 Follow up: Response: No adverse reaction baig Outcome: 13:37 Decision to Hospitalize by Provider. kdr 17:34 Admitted to ER Hold. Please see [facility] for further documentation. jg9 17:34 Condition: stable 18:58 Patient left the ED. jg9 Signatures: Dispatcher [employer] EDMS Nelson Keita MD MD Glory Trimble Tara, RN RN tw2 Bharti Vincent, RN RN jg9 Leonie Martinez RN RN baig
[2021-07-22] MEDS ORDERED: ONDANSETRON 4 MG/2 ML VIAL IV PRN (16:51)
[2021-07-22] MEDS ORDERED: MAGNESIUM HYDROXIDE 8% 30 ML PO PRN (16:51)
[2021-07-22] MEDS ORDERED: ACETAMINOPHEN 500 MG TAB PO PRN (16:51)
[2021-07-22] MEDS ORDERED: Levofloxacin 750mg IV 750 MG/150 ML BAG IV SCH (17:00)
[2021-07-22 18:15] VITALS: BMI 36.0
[2021-07-22] MEDS: ALBUTEROL 2.5 MG/3 ML NEB SOL NEB SCH (19:15)
[2021-07-22] MEDS: IPRATROPIUM BROM 0.5MG/2.5ML NEB SCH (19:15)
[2021-07-22] MEDS: ENOXAPARIN 40 MG/0.4 ML SQ SCH (21:21)
[2021-07-23] MEDS: ALBUTEROL 2.5 MG/3 ML NEB SOL NEB SCH ×4 (01:20→19:24)
[2021-07-23] MEDS: IPRATROPIUM BROM 0.5MG/2.5ML NEB SCH ×4 (01:20→19:24)
[2021-07-23 06:47] LABS: Albumin 2.7 g/dL (3.4-5.0); Bilirubin Total 0.3 mg/dL (0.2-1.0); Magnesium 2.5 mg/dL (1.8-2.4); Potassium 4.9 mmol/L (3.5-5.1); Protein, Total 6.5 g/dL (6.4-8.2); Thyroid Stimulating Hormone 1.42 uIU/mL (0.360-3.740)
[2021-07-23 07:05] LABS: Absolute Lymphocytes (CBC) 0.5 K/uL (0.7-4.9); Hematocrit 52.5 % (39.6-49.0); MPV 8.2 fL (7.6-11.3); RBC Red Blood Cell Count 5.23 M/uL (4.33-5.43)
[2021-07-23] MEDS: ENOXAPARIN 40 MG/0.4 ML SQ SCH (08:24)
--- NOTE | 2021-07-23 10:09 | P.CNS ---
Date of Consult: 07/23/21 Reason for Consult: COPD exacerbation Chief Complaint: Shortness of breath History of Present Illness: Patient is 71 years of age heavy 1 to 2 pack a day smoker admitted with worsening dyspnea over the past 2 weeks has been using ProAir and Breo at home with no relief noncompliant with CPAP also complained of lower extremity edema he is feeling a little better Allergies No Known Allergies Allergy (Verified 02/06/19 08:11) Home Medications: Glycopyrrolate/Formoterol Fum [Bevespi Aerosphere Inhaler] 10.7 gm IH BID 02/04/19 Metformin HCl [Glucophage] 500 mg PO BID 02/04/19 Simvastatin 10 mg PO DAILY 02/04/19 lisinopriL [Prinivil] 10 mg PO DAILY 02/04/19 Codeine/APAP [Tylenol W/Codeine #3 tab] 1 tab PO Q4HP PRN #30 tab 02/06/19 Sulfamethoxazole/Trimethoprim [Bactrim Ds Tablet] 1 each PO BID #12 tablet 02/06/19 - Past Medical/Surgical History -: Diabetes -: Hypertension -: COPD -: Sleep apnea - Social History Smoking Status: Current every day smoker Review of Systems General: Weakness Respiratory: Cough, Shortness of Breath Cardiovascular: Edema (Lower extremity edema) Physical Examination Temp Pulse Resp BP Pulse Ox 98.0 F 84 18 135/67 91 07/23/21 08:00 07/23/21 08:00 07/23/21 08:00 07/23/21 08:00 07/23/21 08:00 General: Alert, In no apparent distress, Oriented x3 Respiratory: Expiratory wheezes Cardiovascular: No edema, Regular rate/rhythm, Normal S1 S2 Gastrointestinal: Normal bowel sounds, Soft and benign Musculoskeletal: No clubbing, No swelling Integumentary: No rashes, No breakdown Laboratory Data (last 24 hrs) 07/22/21 10:07: PT 13.4 H, INR 1.16 07/22/21 10:07: WBC 9.60, Hgb 17.7, Hct 54.3 H, Plt Count 251 07/22/21 10:07: Sodium 136, Potassium 4.9, BUN 25 H, Creatinine 1.05, Glucose 139 H, Magnesium 2.5 H, Total Bilirubin 0.6, AST 18, ALT 43, Alkaline Phosphatase 66 - Problems (1) COPD exacerbation Current Visit: Yes Status: Acute Plan: Patient is 71 years of age admitted with COPD exacerbation very heavy smoker labs reviewed patient is hypoxic bicarb is elevated I suspect he is chronically hypercapnic in addition patient is obese probably has underlying hyper sleep hypoventilation syndrome or sleep apnea noncompliant with CPAP chest x-ray shows some interstitial changes plan to maximize bronchodilator therapy patient has been counseled to stop smoking check arterial blood gases
[2021-07-23 11:43] LABS: Arterial Blood Carboxyhemoglob 4.3 % (0-1.5); Blood Gas Oxyhemoglobin 88.2 % (94-97); Blood O2 Saturation 93.1 % (92-98.5)
[2021-07-23] MEDS: METHYLPREDNISOLONE 40 MG INJ IV SCH ×2 (12:02→16:30)
[2021-07-23] MEDS: levoFLOXacin 750 MG TAB PO SCH (12:02)
[2021-07-23] MEDS: METFORMIN HCL 500 MG TAB PO SCH (16:30)
[2021-07-23] MEDS ORDERED: HOME MED 1 EA UNK (Metformin Hcl [Glucophage] 1,000 MG Tablet) PO SCH (21:00)
[2021-07-23] MEDS ORDERED: ATORVASTATIN 10 MG TAB PO SCH (21:00)
[2021-07-24] MEDS: METHYLPREDNISOLONE 40 MG INJ IV SCH ×2 (01:11→09:13)
[2021-07-24] MEDS: ALBUTEROL 2.5 MG/3 ML NEB SOL NEB SCH ×2 (01:38→07:51)
[2021-07-24] MEDS: IPRATROPIUM BROM 0.5MG/2.5ML NEB SCH ×2 (01:38→07:51)
[2021-07-24] MEDS ORDERED: HOME MED 1 EA UNK (Simvastatin [Simvastatin] 10 MG Tablet) PO SCH (09:00)
[2021-07-24] MEDS ORDERED: lisinopriL 10 MG TAB PO SCH (09:00)
[2021-07-24] MEDS: levoFLOXacin 750 MG TAB PO SCH (09:10)
[2021-07-24] MEDS: METFORMIN HCL 500 MG TAB PO SCH (09:10)
[2021-07-24] MEDS: ENOXAPARIN 40 MG/0.4 ML SQ SCH (09:11)
--- NOTE | 2021-07-24 10:55 | P.PN ---
Subjective Date of Service: 07/24/21 Chief Complaint: COPD exacerbation Subjective: Improving (Patient is doing better patient is doing much better tolerating BiPAP hypoxic hypercapnic willing to use BiPAP now at home) Review of Systems Respiratory: Shortness of Breath Physical Examination - Vital Signs Temperature: 97.3 F Blood Pressure: 119/57 Pulse: 69 Respirations: 20 Pulse Ox (%): 92 - Physical Exam General: Alert, Oriented x3 Respiratory: Expiratory wheezes Cardiovascular: No edema, Regular rate/rhythm Assessment And Plan - Current Problems (Diagnosis) (1) Respiratory failure with hypoxia and hypercapnia Current Visit: Yes Status: Acute Plan: Patient is 70 patient is 71 years of age I suspect that he has severe COPD admitted with hypoxic hypercapnic respiratory failure doing well he will probably qualify for home BiPAP counseled him about smoking probably benefit from a Wellbutrin and a nicotine patch is a very heavy smoker in addition to bronchodilators patient does patient takes Breo and ProAir at home add Spiriva discharge home on low-dose prednisone 10 mg twice a day can DC antibiotics no evidence of sepsis patient has been set up patient has been set up for home O2 repeat arterial blood gases on room air Qualifiers: Chronicity: acute on chronic Qualified Code(s): J96.21 - Acute and chronic respiratory failure with hypoxia; J96.22 - Acute and chronic respiratory failure with hypercapnia Discharge Plan: Home
[2021-07-24 11:40] LABS: Arterial Blood Carboxyhemoglob 2.5 % (0-1.5); Blood Gas Oxyhemoglobin 84.6 % (94-97); Blood O2 Saturation 87.8 % (92-98.5)
[2021-07-24 12:31] VITALS: BP 109/56; TEMP 97.8
[2021-07-24 13:03] VITALS: O2SAT 95
== END 2021-07-24 12:43 | disposition home or self-care (01) | DRG 190 ==
LOC: ER 09:31 → ERHOLD 16:51 → 2ND 18:16
PROVIDERS: ADMIT Hospitalist; ATTEND Hospitalist
PROC: 5A09357 Assistance with Respiratory Ventilation, Less than 24 Consecutive Hours, Continuous Positive Airway Pressure (ICD-10-PCS; principal; 2021-07-24)
DX: J44.1 Chronic obstructive pulmonary disease with (acute) exacerbation (principal); J96.21 Acute and chronic respiratory failure with hypoxia; J96.22 Acute and chronic respiratory failure with hypercapnia; E11.9 Type 2 diabetes mellitus without complications; F17.210 Nicotine dependence, cigarettes, uncomplicated; E66.9 Obesity, unspecified; Z68.36 Body mass index [BMI] 36.0-36.9, adult; Z23 Encounter for immunization; Z79.84 Long term (current) use of oral hypoglycemic drugs; Z79.899 Other long term (current) drug therapy; Z91.19 Patient's noncompliance with other medical treatment and regimen; Z99.89 Dependence on other enabling machines and devices; Z20.822 Contact with and (suspected) exposure to COVID-19
CPT/HCPCS: 36415; 71045; 80048; 80053; 80061; 80076; 82805; 83735; 83880; 84100; 84439; 84443; 84484; 85025; 85610; 94640; 94660; 94760; 96374; 99285; J1650; J2920; U0003

== ENCOUNTER 2021-07-24 21:14 | Inpatient (IN) | payer OTHER ==
--- OUTSIDE RECORDS SUMMARY | 2021-07-24 21:16 | XMS REPORT | Continuity of Care Document ---
:1950 Author Organization [facility] t Address [address] [place] [address] Care Team Providers Name Role Phone Ewelina [...] HFA [facility]ell needed [facility] Lisinopril Lisinopril Yes Jack [address] [facility] Metformin Metformin Yes Jack [address] [facility] HCl HCl [place] with meals [facility] Simvastatin Simvastatin Yes Jack TAKE [address] [facility] [place] TABLET BY [facility] Bevespi Bevespi Yes Jack [address] [facility] Aerosphere Aerosphere [facility] Metformin Metformin Yes Jack [address] [facility] HCl HCl [place] with meals [facility] Immunizations Ordered Filled Immunization Date Status Comments Sourc e Immunization Name Name FluAD FluAD 2019-04-[address] [facility] PNEUMAVAX 23 PNEUMAVAX 23 2018-07-[address] [facility]00 [facility] FluAD FluAD 2018-03-[address] [facility] Prevnar 13 Prevnar 13 2018-03-[address] [facility] - -Pneumonia Vaccine -Pneumonia Vaccine 00:00:00 [facility] Procedures This patient has no known procedures. Encounters Start End Encounter Admission Attending Care Care Encounter Source Date/Time Date/Time Type Type Clinicians Facility Department ID 2021-06-23 Outpatient NA[facility] [id number] [facility] [address] 12:[facility]58 Jack [id number] [facility] 2021-06-23 Outpatient Rowell, [facility] [id number] [facility] [address] 11:17:26 Jack [id number] [facility] 2021-06-23 Outpatient Rowell, [facility] [id number] [facility] 11[facility]16[facility]19 Jack [id number] [facility] 2021-07-23 2021-07-23 ambulatory [facility] [id number] [facility] 2021-07-22 2021-07-22 ambulatory [facility] [id number] [facility] 2021-03-25 2021-03-25 Outpatient [facility] [id number] [facility] 2020-12-28 2020-12-28 Outpatient [facility] [id number] [facility] 2020-12-23 2020-12-23 Outpatient [facility] [id number] [facility] 2020-09-22 2020-09-22 Outpatient [facility] [id number] [facility] 2020-06-18 2020-06-18 Outpatient [facility] [id number] [facility] 2020-03-02 2020-03-02 Outpatient [facility] [id number] [facility] Outpat[facility] Clinics 2019-11-28 2019-11-28 [facility] [id number] 08:[facility] 08:00:[address] [facility] - [address] [facility] l Medicine Outpati ent Clinics 2019-09-03 2019-09-03 [facility] [id number] [address] 14:45:[facility] 14:45:[address] Luke s - Drive [facility] l Medicine Outpati ent Clinics 2019-07-31 2019-07-31 [facility] [id number] 08:45:00 08:45:[address] [employer] [facility] - Drive [facility] Medicine Outpati ent Clinics 2019-04-01 2019-04-01 [facility] [id number] 08:45:00 08:45:[address] [employer] - Drive [facility] Medicine Outpati ent Clinics 2018-12-28 2018-12-28 [facility] [id number] 08:00:00 08:00:00 [place] [employer] Luke s - Drive [facility] Medicine l Medicine Outpati ent Clinics 2018-11-09 2018-11-09 [facility] [id number] 07:31:00 07:31:00 [place] [employer] - Drive [facility] Medicine l Medicine Outpati ent Clinics 2018-09-28 2018-09-28 [facility] [id number] 07:32:00 07:32:00 [place] [employer] Luke s - Drive [facility] Medicine Medicine Outpati ent Clinics 2018-09-27 2018-09-27 [facility] [id number] 08:30:00 08:30:[address] Luke [facility] - Drive [facility] l Medicine Outpati ent Clinics 2018-09-26 2018-09-26 [facility] [id number] 09:29:00 09:29:[address] [employer] - Drive [facility] l Medicine Outpati ent Clinics 2018-07-04 2018-07-04 [facility] [id number] 09:00:00 09:00:00 t [employer] [facility] Outpati ent Clinics 2018-06-01 2018-06-01 Outpatient [facility] [id number] 08:45:00 08:45:00 [facility] 2018-03-01 2018-03-01 Outpatient Juani [facility] [id number] [facility] [address] 08:15:00 08:15:00 t [employer] [facility] Results This patient has no known results.
--- NOTE | 2021-07-24 22:05 | RAD REPORT ---
EXAM DESCRIPTION: RAD - Chest Single View - 07/24/2021 9:58 pm CLINICAL HISTORY: DYSPNEA Chest pain. COMPARISON: Chest Single View dated 07/22/2021; Chest Pa And Lat (2 Views) dated 02/04/2019; CHEST PA A ND LAT 2 VIEW dated 11/09/2011; CHEST SINGLE VIEW dated 03/23/2005 FINDINGS: Portable technique limits examination quality. Mild pulmonary edema is seen. The heart is mildly enlarged in size. No displaced fractures. IMPRESSION: Mild CHF.
[2021-07-24] MEDS ORDERED: METHYLPREDNISOLONE 125 MG INJ ONE (22:23)
[2021-07-24] MEDS ORDERED: IPRATROPIUM BROM 0.5MG/2.5ML ONE (22:24)
[2021-07-24] MEDS ORDERED: FUROSEMIDE 100 MG/10 ML VIAL IV ONE (22:24)
[2021-07-24] MEDS ORDERED: ALBUTEROL 2.5 MG/3 ML NEB SOL ONE (22:24)
[2021-07-24 22:39] LABS: Absolute Lymphocytes (CBC) 0.6 K/uL (0.7-4.9); Hematocrit 51.6 % (39.6-49.0); Lymphocytes % 3.8 % (15.3-44.8); MPV 7.8 fL (7.6-11.3); Protime INR 1.03; RBC Red Blood Cell Count 5.18 M/uL (4.33-5.43)
[2021-07-24 23:07] LABS: ALT/SGPT 38 U/L (12-78); AST/SGOT 27 U/L (15-37); Alkaline Phosphatase 79 U/L (45-117); BUN Blood Urea Nitrogen 21 mg/dL (7-18); Bicarbonate 40 mmol/L (21-32); Bilirubin Direct 0.1 mg/dL (0-0.2); Bilirubin Total 0.3 mg/dL (0.2-1.0); Glucose Level 125 mg/dL (74-106); Magnesium 2.4 mg/dL (1.8-2.4); NT PRO-BNP 1382 pg/mL (<125); Potassium 5.1 mmol/L (3.5-5.1); Protein, Total 6.9 g/dL (6.4-8.2); Sodium Level 138 mmol/L (136-145)
--- NOTE | 2021-07-24 23:44 | EDPHYS ---
Physician Documentation [facility] Name: Rigoberto Del Rosario Age: 71 yrs Sex: Male : 1950 Arrival Date: 07/24/2021 Time: 21:15 Bed 3 Private MD: ED Physician Sanchez Mays HPI: 07/24 23:37 This 71 yrs old Male presents to ER via Wheelchair with complaints of Shortness Of kb Breath. 23:37 The patient has shortness of breath at rest. Onset: The symptoms/episode began/occurred kb today. Duration: The symptoms are continuous. The patient's shortness of breath is aggravated by exertion. Associated signs and symptoms: Pertinent positives: edema. Severity of symptoms: At their worst the symptoms were moderate severe in the emergency department the symptoms are unchanged. The patient has experienced similar episodes in the past. The patient has not recently seen a physician. Pt states he was admitted for shortness of breath 2 days ago, left today around 1600 because he didn't want to be here anymore. Came back tonight because he couldn't breathe again. States he got oxygen delivered to his house today, but it wasn't helping his shortness of breath. Smokes 2 packs a day. Historical: - Allergies: 21:30 No Known Allergies; ll3 - Home Meds: 21:30 albuterol sulfate 1.25 mg/3 mL Inhl nebu 3 mL 3 times per day [Active]; Breo Ellipta ll3 200-25 mcg/dose inhalation dsdv 1 puff once daily [Active]; lisinopril 10 mg Oral tab 1 tab once daily [Active]; meloxicam 7.5 mg Oral tab 1 tab once daily [Active]; metformin 1,000 mg Oral tab 1 tab once a day [Active]; OTC water pill, since monday twice a day [Active]; simvastatin 10 mg Oral tab 1 tab once daily [Active]; - PMHx: 21:30 COPD; diabetes mellitus; ll3 - PSHx: 21:30 None; ll3 - Immunization history:: Client reports receiving the 2nd dose of the Covid vaccine. - Social history:: Smoking status: Patient reports the use of cigarette tobacco products, smokes two packs cigarettes per day. ROS: 23:33 Constitutional: Negative for fever, chills, and weight loss. kb 23:33 Cardiovascular: Positive for edema. 23:33 Respiratory: Positive for dyspnea on exertion, shortness of breath. 23:33 All other systems are negative. Exam: 23:33 Constitutional: This is a well developed, well nourished patient who is awake, alert, kb and in no acute distress. Head/Face: Normocephalic, atraumatic. ENT: Moist Mucous membranes Cardiovascular: Regular rate and rhythm with a normal S1 and S2. No gallops, murmurs, or rubs. No pulse deficits. Skin: Warm, dry with normal turgor. Normal color. MS/ Extremity: Pulses equal, no cyanosis. Neurovascular intact. Full, normal range of motion. Neuro: Awake and alert, GCS 15, oriented to person, place, time, and situation. Moves all extremities. Normal gait. Psych: Awake, alert, with orientation to person, place and time. Behavior, mood, and affect are within normal limits. 23:33 Cardiovascular: Edema: pedal edema. 23:33 Respiratory: mild respiratory distress is noted, moderate respiratory distress is noted, Respirations: labored breathing, Breath sounds: wheezing: expiratory that is mild, that is moderate, is heard in the left lower lobe and right lower lobe. Vital Signs: 21:24 Pulse Ox 66% on R/A; ll3 21:24 BP 153 / 68; Pulse 99; Resp 26; Temp 99.2(TE); Pulse Ox 99% on 4 lpm NC; Weight 113.4 ll3 kg (R); Height 5 ft. 7 in. (170.18 cm) (R); Pain 0/10; 21:30 BP 141 / 72; Pulse 102; Resp 24 S; Pulse Ox 97% on 4 lpm NC; al4 22:48 BP 120 / 94; Pulse 101; Resp 16; Pulse Ox 100% on R/A; st1 23:15 BP 113 / 62; Pulse 84; Resp 18; Pulse Ox 92% on 4 lpm NC; al4 23:45 BP 119 / 68; Pulse 73; Resp 20; Pulse Ox 86% on 4 lpm NC; al4 07/25 00:00 Pulse Ox 100% on Non-rebreather mask; al4 00:15 BP 138 / 97; Pulse 86; Resp 21 S; Pulse Ox 98% on 6 lpm NC; al4 07/24 21:24 Body Mass Index 39.16 (113.40 kg, 170.18 cm) ll3 MDM: 07/24 21:21 Patient medically screened. kb 23:34 Data reviewed: vital signs, nurses notes. Data interpreted: Pulse oximetry: on room air kb is 66 %. Interpretation: hypoxia. Counseling: I had a detailed discussion with the patient and/or guardian regarding: the historical points, exam findings, and any diagnostic results supporting the discharge/admit diagnosis, lab results, radiology results, the need for further work-up and treatment in the hospital. Physician consultation: Lynda TERRY was contacted at 23:36, regarding admission, to the telemetry unit. patient's condition, and will see patient in ED. 07/24 21:31 Order name: Basic Metabolic Panel; Complete Time: 23:10 kb 07/24 21:31 Order name: CBC with Diff; Complete Time: 22:42 kb 07/24 21:31 Order name: LFT's; Complete Time: 23:10 kb 07/24 21:31 Order name: Magnesium; Complete Time: 23:10 kb 07/24 21:31 Order name: NT PRO-BNP; Complete Time: 23:10 kb 07/24 21:31 Order name: PT-INR; Complete Time: 22:42 kb 07/24 21:31 Order name: Troponin HS; Complete Time: 23:10 kb 07/24 21:31 Order name: XRAY Chest (1 view); Complete Time: 22:07 kb 07/24 22:42 Order name: COVID-19 SARS RT PCR (Document "Date of Onset" if Symptomatic) kb 07/24 22:43 Order name: SARS-COV-2 RT PCR; Complete Time: 01:00 EDMS 07/25 01:15 Order name: ABG Arterial Blood Gas EDME 07/24 21:31 Order name: EKG; Complete Time: 21:31 kb 07/24 21:31 Order name: Cardiac monitoring; Complete Time: 21:41 kb 07/24 21:31 Order name: EKG - Nurse/Tech; Complete Time: 21:41 kb 07/24 21:31 Order name: IV Saline Lock; Complete Time: 21:41 kb 07/24 21:31 Order name: Labs collected and sent; Complete Time: 21:41 kb 07/24 21:31 Order name: O2 Per Protocol; Complete Time: 21:42 kb 07/24 21:31 Order name: O2 Sat Monitoring; Complete Time: 21:42 kb 07/24 21:54 Order name: Labs - recollect needed: all labs; Complete Time: 23:27 mw2 Administered Medications: 22:21 Drug: Lasix (furosemide) 40 mg Route: IVP; Site: right antecubital; st1 23:00 Follow up: Response: No adverse reaction al4 22:21 Drug: SOLU-Medrol (methylPrednisoLONE) 125 mg Route: IVP; Site: right antecubital; st1 23:00 Follow up: Response: No adverse reaction al4 22:22 Drug: Albuterol 2.5 mg Route: Inhalation; st1 23:00 Follow up: Response: No adverse reaction al4 22:22 Drug: AtroVENT (ipratropium) Aerosol 0.5 mg Route: Inhalation; st1 23:00 Follow up: Response: No adverse reaction al4 Disposition: 07/25 05:03 Co-signature as Attending Physician, Sanchez Mays MD. [facility] Disposition Summary: 07/24/21 23:43 Hospitalization Ordered Hospitalization Status: Observation kb Provider: Africa Espinoza Location: Telemetry/MedSurg (observation) kb Condition: Stable kb Problem: an acute exacerbation kb Symptoms: are unchanged kb Bed/Room Type: Standard Room Assignment: 219(07/25/21 00:42) mw Diagnosis - Unspecified combined systolic (congestive) and diastolic (congestive) heart failure kb - COPD/ Chronic obstructive pulmonary disease with (acute) exacerbation kb - Hypoxia kb Forms: - Medication Reconciliation Form kb - SBAR form kb Signatures: Dispatcher [employer] Patricia Khalil FNP-C FNP-Genevieve Ramirez RN RN Nixon Lee 2 Sanchez Mays MD MD [facility] Hailey Marte RN RN 3 Jing Logan RN RN 1 Keaton Drew al4 Corrections: (The following items were deleted from the chart) 07/24 21:32 21:30 PMHx: Hypertensive disorder; ll3 ll3 07/25 00:42 07/24 23:43 kb mw
--- NOTE | 2021-07-24 23:44 | ER ---
Nurse's Notes [facility] Name: Rigoberto Del Rosario Age: 71 yrs Sex: Male : 1950 Arrival Date: 07/24/2021 Time: 21:15 Bed 3 Private MD: Diagnosis: Unspecified combined systolic (congestive) and diastolic (congestive) heart failure;COPD/ Chronic obstructive pulmonary disease with (acute) exacerbation;Hypoxia Presentation: 07/24 21:24 Chief complaint: Patient states: States I cant breath, I released myself around 4 PM ll3 today, states I got home and I felt like I needed to come back, I've been retaining fluid, I've put on 20 pounds. Coronavirus screen: Vaccine status: Patient reports receiving the 2nd dose of the covid vaccine. difficulty breathing. Ebola Screen: No symptoms or risks identified at this time. Initial Sepsis Screen: Does the patient meet any 2 criteria? RR > 20 per min. HR > 90 bpm. Yes Does the patient have a suspected source of infection? If YES to both, name of provider notified: Sanchez Mays MD Risk Assessment: Do you want to hurt yourself or someone else? Patient reports no desire to harm self or others. Onset of symptoms is unknown. 21:24 Method Of Arrival: Wheelchair ll3 21:24 Acuity: JANINA 2 ll3 Triage Assessment: 21:30 General: Appears uncomfortable, Behavior is cooperative, anxious. Pain: Denies pain. ll3 Neuro: Level of Consciousness is awake, alert, obeys commands, Oriented to person, place, time, situation. Cardiovascular: Patient's skin is warm and dry. Respiratory: Reports shortness of breath cough that is since Started the past couple days Respiratory effort is labored, Respiratory pattern is hyperventilation Breath sounds with wheezes bilaterally. Onset: The symptoms/episode began/occurred States started a couple of weeks ago but started to get worse this afternoon, the patient has moderate shortness of breath. Derm: Skin is dusky. Historical: - Allergies: 21:30 No Known Allergies; ll3 - Home Meds: 21:30 albuterol sulfate 1.25 mg/3 mL Inhl nebu 3 mL 3 times per day [Active]; Breo Ellipta ll3 200-25 mcg/dose inhalation dsdv 1 puff once daily [Active]; lisinopril 10 mg Oral tab 1 tab once daily [Active]; meloxicam 7.5 mg Oral tab 1 tab once daily [Active]; metformin 1,000 mg Oral tab 1 tab once a day [Active]; OTC water pill, since monday twice a day [Active]; simvastatin 10 mg Oral tab 1 tab once daily [Active]; - PMHx: 21:30 COPD; diabetes mellitus; ll3 - PSHx: 21:30 None; ll3 - Immunization history:: Client reports receiving the 2nd dose of the Covid vaccine. - Social history:: Smoking status: Patient reports the use of cigarette tobacco products, smokes two packs cigarettes per day. Screenin:42 Abuse screen: Denies threats or abuse. Nutritional screening: No deficits noted. st1 Tuberculosis screening: No symptoms or risk factors identified. Fall Risk None identified. No fall in past 12 months (0 pts). Secondary diagnosis (15 points) impaired mobility, IV access (20 points). Ambulatory Aid- Crutches/Cane/Walker (15 pts). Gait- Normal/Bed Rest/Wheelchair (0 pts) Mental Status- Oriented to own ability (0 pts). Total Islas Fall Scale indicates Low Risk Score (25-44 pts). Assessment: 23:25 General: Appears in no apparent distress. comfortable, Behavior is calm, cooperative. al4 Pain: Denies pain. Neuro: Level of Consciousness is awake, alert, obeys commands, Oriented to person, place, time, situation. Cardiovascular: Capillary refill < 3 seconds Patient's skin is warm and dry. Rhythm is regular. Respiratory: Reports shortness of breath cough that is dry, Airway is patent Respiratory effort is labored, the patient has moderate shortness of breath. Musculoskeletal: Range of motion: intact in all extremities. 07/25 00:07 Reassessment: MARA Dubois aware of O2 saturation and came to bedside to assess patient. al4 00:13 Reassessment: Patient and/or family updated on plan of care and expected duration. Pain al4 level reassessed. 00:24 Reassessment: MARA Dubois ordered pt to be on non-rebreather for the time being and al4 waiting for ABG results. 00:28 Reassessment: MARA Ordered RT to bedside. al4 00:39 Reassessment: YANET Hart called RT to bedside. al4 00:41 Reassessment: Patient is alert and oriented. Denies pain. al4 Vital Signs: 07/24 21:24 Pulse Ox 66% on R/A; ll3 21:24 BP 153 / 68; Pulse 99; Resp 26; Temp 99.2(TE); Pulse Ox 99% on 4 lpm NC; Weight 113.4 ll3 kg (R); Height 5 ft. 7 in. (170.18 cm) (R); Pain 0/10; 21:30 BP 141 / 72; Pulse 102; Resp 24 S; Pulse Ox 97% on 4 lpm NC; al4 22:48 BP 120 / 94; Pulse 101; Resp 16; Pulse Ox 100% on R/A; st1 23:15 BP 113 / 62; Pulse 84; Resp 18; Pulse Ox 92% on 4 lpm NC; al4 23:45 BP 119 / 68; Pulse 73; Resp 20; Pulse Ox 86% on 4 lpm NC; al4 07/25 00:00 Pulse Ox 100% on Non-rebreather mask; al4 00:15 BP 138 / 97; Pulse 86; Resp 21 S; Pulse Ox 98% on 6 lpm NC; al4 07/24 21:24 Body Mass Index 39.16 (113.40 kg, 170.18 cm) ll3 ED Course: 07/24 21:15 Patient arrived in ED. [id number] 21:20 [facility]C [facility] kb 21:20 Sanchez Mays MD is Attending Physician. kb 21:30 Triage completed. ll3 21:30 Arm band placed on Patient placed in an exam room, on a stretcher, on oxygen, on pulse ll3 oximetry. 21:34 Jing Logan RN is Primary Nurse. st1 21:42 Basic Metabolic Panel Sent. st1 21:42 CBC with Diff Sent. st1 21:42 LFT's Sent. st1 21:42 Troponin HS Sent. st1 21:42 Magnesium Sent. st1 21:42 NT PRO-BNP Sent. st1 21:42 PT-INR Sent. st1 21:42 Inserted saline lock: 20 gauge in right antecubital area, using aseptic technique. st1 21:58 XRAY Chest (1 view) In Process Unspecified. EDMS 22:12 Basic Metabolic Panel Sent. st1 22:12 CBC with Diff Sent. st1 22:12 PT-INR Sent. st1 22:12 LFT's Sent. st1 22:13 Magnesium Sent. st1 22:13 NT PRO-BNP Sent. st1 22:13 Troponin HS Sent. st1 23:31 Patient has correct armband on for positive identification. Placed in gown. Bed in low al4 position. Side rails up X2. threat monitoring analyst on. Pulse ox on. NIBP on. Door closed. 23:42 Africa Espinoza MD is Hospitalizing Provider. kb 23:42 COVID-19 SARS RT PCR (Document "Date of Onset" if Symptomatic) Sent. st1 23:42 SARS-COV-2 RT PCR Sent. st1 07/25 00:50 No provider procedures requiring assistance completed. st1 00:52 Patient admitted, IV remains in place. st1 Administered Medications: 07/24 22:21 Drug: Lasix (furosemide) 40 mg Route: IVP; Site: right antecubital; st1 23:00 Follow up: Response: No adverse reaction al4 22:21 Drug: SOLU-Medrol (methylPrednisoLONE) 125 mg Route: IVP; Site: right antecubital; st1 23:00 Follow up: Response: No adverse reaction al4 22:22 Drug: Albuterol 2.5 mg Route: Inhalation; st1 23:00 Follow up: Response: No adverse reaction al4 22:22 Drug: AtroVENT (ipratropium) Aerosol 0.5 mg Route: Inhalation; st1 23:00 Follow up: Response: No adverse reaction al4 Outcome: 23:43 Decision to Hospitalize by Provider. kb 07/25 00:50 Admitted to Med/surg accompanied by tech, via stretcher, with oxygen, with chart, st1 Report called to YANET Horn Condition: stable Instructed on the need for admit, Demonstrated understanding of 01:35 Patient left the ED. al4 Signatures: Dispatcher [employer] EDMS Patricia Vidal, MOLD POLISHER-C MOLD POLISHER-CkBharti Spicer [email or web address] Hailey Marte RN RN 3 Keaton Drew al4 Jing Logan RN RN st1 Corrections: (The following items were deleted from the chart) 07/24 21:32 21:30 PMHx: Hypertensive disorder; ll3 ll3 23:25 Cardiovascular: Capillary refill < 3 seconds Patient's skin is warm and dry. al4 al4 23:25 Respiratory: Airway is patent Respiratory effort is unlabored, Respiratory al4 pattern is regular, al4 07/25 00:38 00:28 Reassessment: Ordered RT to bedside al4 al4
[2021-07-25] MEDS ORDERED: ALBUTEROL 2.5 MG/3 ML NEB SOL NEB PRN (00:42)
[2021-07-25] MEDS ORDERED: ONDANSETRON 4 MG/2 ML VIAL IV PRN (00:42)
--- NOTE | 2021-07-25 00:43 | P.HP ---
Certification for Inpatient Patient admitted to: Inpatient With expected LOS: >2 Midnights Patient will require the following post-hospital care: None Practitioner: I am a practitioner with admitting privileges, knowledge of patient current condition, hospital course, and medical plan of care. Services: Services provided to patient in accordance with Admission requirements found in Title 42 Section 412.3 of the Code of Federal Regulations <Lynda Lowe - Last Filed: 07/25/21 00:31> Patient History Date of Service: 07/25/21 Reason for admission: COPD/CHF Exacerbation History of Present Illness: Patient is a 71-year-old male with COPD/emphysema who presented to the ED with complaints of shortness of breath. He was recently admitted to the hospital on 07/22 for COPD and left AMA this afternoon. When he went home, he had home oxygen delivered however it was not helping enough. He returned to the ED where his O2 saturation was 66%. He was satting in the 70s to 80s on 4 L and was switched to a nonrebreather mask. Upon my assessment, patient states he feels like his breathing has improved and breathes okay while sitting/lying down however when standing is when it gets difficult. Chest x-ray showed mild CHF however patient denies a diagnosis of CHF. Labs remarkable for WBC 15.9, CO2 40, BNP 1382, Covid negative. ABG and BiPAP have been ordered. He also had pitting edema and was given 40 mg of Lasix in the ED. Was also given solumedrol, albuterol, and ipratroprium. Will admit patient for further evaluation and treatment with pulmonology and cardiology consulting. Home medications list reviewed: Yes - Past Medical/Surgical History Diabetic: Yes -: Diabetes -: Hypertension -: COPD -: Sleep apnea Past Surgical History: Patient denies surgical history Psychosocial/ Personal History: Patient lives at home - Family History Family History: Reviewed- Non-Contributory - Social History Smoking Status: Current every day smoker Counseled patient to stop smoking for: less than 10 minutes Alcohol use: No CD- Drugs: Yes Place of Residence: Home <Lynda Lowe - Last Filed: 07/25/21 00:31> Date of Service: 07/25/21 <Africa Espinoza - Last Filed: 07/26/21 01:03> Allergies No Known Allergies Allergy (Verified 02/06/19 08:11) Home Medications: Glycopyrrolate/Formoterol Fum [Bevespi Aerosphere Inhaler] 10.7 gm IH BID 02/04/19 Metformin HCl [Glucophage] 500 mg PO BID 02/04/19 Simvastatin 10 mg PO DAILY 02/04/19 lisinopriL [Prinivil*] 10 mg PO DAILY 02/04/19 Codeine/APAP [Tylenol #3*] 1 tab PO Q4HP PRN #30 tab 02/06/19 Albuterol Neb [Proventil 0.083% Neb Soln] 2.5 mg NEB [id number] #60 amp 07/24/21 Ipratropium Neb [Atrovent*] 0.5 mg NEB [id number] #60 amp 07/24/21 predniSONE [Prednisone*] 20 mg PO BID #10 tab 07/24/21 Review of Systems 10-point ROS is otherwise unremarkable Respiratory: Shortness of Breath, SOB with Excertion, Other Cardiovascular: Edema <Lynda Lowe - Last Filed: 07/25/21 00:31> Physical Examination - Physical Exam General: Alert, In no apparent distress, Oriented x3 HEENT: Atraumatic, PERRLA, EOMI, Sclerae nonicteric Neck: Supple, 2+ carotid pulse no bruit, No LAD, Without JVD or thyroid abnormality Respiratory: Crackles/rales Cardiovascular: Regular rate/rhythm, Normal S1 S2, Edema (1+ pitting edema) Gastrointestinal: Normal bowel sounds, No tenderness Musculoskeletal: No tenderness Integumentary: No rashes Neurological: Normal speech, Normal strength at 5/5 x4 extr, Normal tone, Normal affect - Studies Laboratory Data (last 24 hrs) 07/24/21 22:15: PT 11.9, INR 1.03 07/24/21 22:15: WBC 15.90 H D, Hgb 16.3, Hct 51.6 H, Plt Count 229 07/24/21 22:15: Sodium 138, Potassium 5.1, BUN 21 H, Creatinine 0.76, Glucose 125 H, Magnesium 2.4, Total Bilirubin 0.3, AST 27, ALT 38, Alkaline Phosphatase 79 <Lynda Lowe - Last Filed: 07/25/21 00:31> Assessment and Plan - Problems (Diagnosis) (1) CHF (congestive heart failure) Current Visit: Yes Status: Acute Qualifiers: Heart failure type: unspecified Heart failure chronicity: acute Qualified Code(s): I50.9 - Heart failure, unspecified (2) Type 2 diabetes mellitus Current Visit: Yes Status: Chronic Qualifiers: Diabetes mellitus long term care administrator insulin use: without retirement use Diabetes mellitus complication status: without complication Qualified Code(s): E11.9 - Type 2 diabetes mellitus without complications (3) COPD exacerbation Current Visit: Yes Status: Acute (4) Respiratory failure with hypoxia and hypercapnia Current Visit: Yes Status: Acute Qualifiers: Chronicity: acute on chronic Qualified Code(s): J96.21 - Acute and chronic respiratory failure with hypoxia; J96.22 - Acute and chronic respiratory failure with hypercapnia - Plan -Patient was on 4 L nasal cannula in the ED still satting in the 80s. CO2 was 40. have switched to BiPAP and ordered ABG. -Albuterol, ipratropium, and Solu-Medrol ordered -Chest x-ray showed mild CHF and patient had 1+ pitting edema. Patient denies having CHF or seeing a hygiene assistant. Patient was given 40 mg of Lasix in the ED. Will start patient on acetazolamide and monitor fluid status with 1200 cc /day fluid restriction and daily weights. -Patient did have a white count in the ED of 15, will start on Levaquin -Cardiology and pulmonology consulted. DVT PPx: Lovenox Code: Full Discharge Plan: Home Plan to discharge in: Greater than 2 days - Advance Directives Does patient have a Living Will: No Does patient have a Durable POA for Healthcare: No - Code Status/Comfort Care Code Status Assessed: Yes (Full) Critical Care: No Time Spent Managing Pts Care (In Minutes): 70 <Lynda Lowe - Last Filed: 07/25/21 00:31> Date of Service: 07/25/21 Subjective: HPI as mentioned above Physical Examination: Vitals: Afebrile vital signs are stable Physical exam: Cardiovascular: Within normal limits. Lungs: Basilar crackles and expiratory wheezing Abdomen: Within normal limits Neuro: Awake, alert, oriented to person place and time Assessment: 1. Acute hypercapnic respiratory failure Plan: 1. Continue with current plan of care as mentioned above <Africa Espinoza - Last Filed: 07/26/21 01:03>
[2021-07-25] MEDS ORDERED: Levofloxacin500mg IV 500 MG/100 ML BAG IV SCH (01:00)
[2021-07-25 01:14] LABS: Arterial Blood Carboxyhemoglob 5.5 % (0-1.5); Blood Gas Oxyhemoglobin 88.6 % (94-97); Blood O2 Saturation 94.9 % (92-98.5)
[2021-07-25] MEDS: IPRATROPIUM BROM 0.5MG/2.5ML NEB SCH ×4 (01:40→20:00)
[2021-07-25 02:41] VITALS: BMI 38.9
[2021-07-25] MEDS: METHYLPREDNISOLONE 40 MG INJ IV SCH ×2 (02:53→09:00)
[2021-07-25 03:57] LABS: Absolute Lymphocytes (CBC) 0.3 K/uL (0.7-4.9); Hematocrit 51.7 % (39.6-49.0); MPV 7.9 fL (7.6-11.3); RBC Red Blood Cell Count 5.14 M/uL (4.33-5.43)
[2021-07-25 04:12] LABS: ALT/SGPT 38 U/L (12-78); AST/SGOT 27 U/L (15-37); Alkaline Phosphatase 69 U/L (45-117); BUN Blood Urea Nitrogen 24 mg/dL (7-18); Bilirubin Total 0.4 mg/dL (0.2-1.0); Glucose Level 158 mg/dL (74-106); Potassium 5.1 mmol/L (3.5-5.1); Protein, Total 6.6 g/dL (6.4-8.2); Sodium Level 137 mmol/L (136-145)
[2021-07-25 04:14] LABS: Bicarbonate 43 mmol/L (21-32)
[2021-07-25] MEDS: ALBUTEROL 2.5 MG/3 ML NEB SOL NEB PRN ×2 (07:48→20:00)
[2021-07-25] MEDS: ENOXAPARIN 40 MG/0.4 ML SQ SCH (08:59)
[2021-07-25] MEDS ORDERED: PNEUMOCOCCAL VACCINE 0.5 ML IMVAC ONE (09:00)
[2021-07-25] MEDS ORDERED: ACETAZOLAMIDE 500 MG IV IV SCH (09:00)
--- NOTE | 2021-07-25 11:12 | P.PN ---
Subjective Date of Service: 07/25/21 Chief Complaint: COPD exacerbation Patient was discharged yesterday went AMA came back again became acutely worse more short of breath started smoking again is hypercapnic respiratory failure Review of Systems Respiratory: Cough, Shortness of Breath Physical Examination - Vital Signs Temperature: 97.3 F Blood Pressure: 135/67 Pulse: 70 Respirations: 21 Pulse Ox (%): 70 - Physical Exam General: Alert, In no apparent distress, Oriented x3 Respiratory: Expiratory wheezes Cardiovascular: No edema, Normal S1 S2 Gastrointestinal: Normal bowel sounds - Studies Laboratory Data (last 24 hrs) 07/24/21 22:15: PT 11.9, INR 1.03 07/24/21 22:15: WBC 15.90 H D, Hgb 16.3, Hct 51.6 H, Plt Count 229 07/24/21 22:15: Sodium 138, Potassium 5.1, BUN 21 H, Creatinine 0.76, Glucose 125 H, Magnesium 2.4, Total Bilirubin 0.3, AST 27, ALT 38, Alkaline Phosphatase 79 Assessment And Plan - Current Problems (Diagnosis) (1) Respiratory failure with hypoxia and hypercapnia Current Visit: Yes Status: Acute Plan: Patient is 71 years of age admitted with chronic hypoxemia hypercapnia secondary to severe COPD benefit from a noninvasive ventilator due to severity of his condition BiPAP is not a consideration continue with BiPAP will arrange for home NIV change to Zithromax for his anti-inflammatory properties add Daliresp which to p.o. prednisone DC Levaquin he needs help stopping smoking I have ordered Wellbutrin and nicotine patch Qualifiers: Chronicity: acute on chronic Qualified Code(s): J96.21 - Acute and chronic respiratory failure with hypoxia; J96.22 - Acute and chronic respiratory failure with hypercapnia
[2021-07-25] MEDS: BUPROPRION HCL S.R. 150MG TAB PO SCH ×2 (12:50→20:33)
[2021-07-25] MEDS: NICOTINE 21 MG/PAT TD SCH (12:50)
[2021-07-25] MEDS: ROFLUMILAST 500 MCG TABLET PO SCH (12:50)
[2021-07-25] MEDS: AZITHROMYCIN 250 MG TAB PO SCH (12:51)
[2021-07-25] MEDS: acetaZOLAMIDE 250 MG TAB PO SCH (20:32)
[2021-07-25] MEDS: predniSONE 20 MG TAB PO SCH (20:32)
[2021-07-25] MEDS: METFORMIN HCL 500 MG TAB PO SCH (20:32)
[2021-07-26] MEDS: ALBUTEROL 2.5 MG/3 ML NEB SOL NEB PRN ×3 (02:20→14:00)
[2021-07-26] MEDS: IPRATROPIUM BROM 0.5MG/2.5ML NEB SCH ×4 (02:20→21:10)
[2021-07-26 04:27] LABS: Absolute Lymphocytes (CBC) 0.5 K/uL (0.7-4.9); Hematocrit 52.4 % (39.6-49.0); Lymphocytes % 3.5 % (15.3-44.8); MPV 7.8 fL (7.6-11.3)
[2021-07-26 04:59] LABS: ALT/SGPT 36 U/L (12-78); AST/SGOT 20 U/L (15-37); Alkaline Phosphatase 67 U/L (45-117); BUN Blood Urea Nitrogen 22 mg/dL (7-18); Bicarbonate 39 mmol/L (21-32); Bilirubin Total 0.3 mg/dL (0.2-1.0); Glucose Level 143 mg/dL (74-106); Potassium 4.8 mmol/L (3.5-5.1); Protein, Total 6.8 g/dL (6.4-8.2); Sodium Level 141 mmol/L (136-145)
[2021-07-26 05:28] LABS: Blood Morphology Comment NOT SEEN (NOT SEEN); Platelet Estimate ADEQ
[2021-07-26 07:00] LABS: Urine Appearance CLEAR (Clear); Urine Bilirubin NEGATIVE (Negative); Urine Blood NEGATIVE (Negative); Urine Color YELLOW (Yellow); Urine Glucose NEGATIVE (Negative); Urine Protein NEGATIVE (Negative); Urine pH 7.5 (5.0-7.0)
[2021-07-26 07:01] LABS: Urine Microscopic Reflex NO UMIC
[2021-07-26] MEDS: ATORVASTATIN 10 MG TAB PO SCH (08:07)
[2021-07-26] MEDS: acetaZOLAMIDE 250 MG TAB PO SCH ×2 (08:07→20:03)
[2021-07-26] MEDS: lisinopriL 10 MG TAB PO SCH (08:07)
[2021-07-26] MEDS: METFORMIN HCL 500 MG TAB PO SCH ×2 (08:07→20:03)
[2021-07-26] MEDS: ENOXAPARIN 40 MG/0.4 ML SQ SCH (08:07)
[2021-07-26] MEDS: predniSONE 20 MG TAB PO SCH ×2 (08:07→20:03)
[2021-07-26] MEDS: AZITHROMYCIN 250 MG TAB PO SCH (08:07)
[2021-07-26] MEDS: NICOTINE 21 MG/PAT TD SCH (08:08)
[2021-07-26] MEDS: BUPROPRION HCL S.R. 150MG TAB PO SCH ×2 (08:14→20:03)
[2021-07-26] MEDS: ROFLUMILAST 500 MCG TABLET PO SCH (08:19)
--- NOTE | 2021-07-26 08:50 | EKG ---
Test Date: 2021-07-24 Test Time: 21:38:36 Java Flex Developer: THONY MEASUREMENT RESULTS: Intervals: Rate: 108 ID: [id number] QRSD: 82 QT: 328 QTc: 439 [place]: P: 88 ID: [id number] QRS: 121 T: 72 INTERPRETIVE STATEMENTS: Sinus tachycardia Left posterior fascicular block Anterior infarct, age undetermined Abnormal ECG Compared to ECG 07/22/2021 10:45:14 Left posterior fascicular block now present Sinus rhythm no longer present Atrial premature complex(es) no longer present Right superior axis no longer present ST (T wave) deviation no longer present Possible ischemia no longer present Myocardial infarct finding still present Electronically Signed On 07-26-21 08:47:51 MASKING MACHINE FEEDER by Carl Mercedes
--- NOTE | 2021-07-26 12:11 | P.PN ---
Subjective Date of Service: 07/26/21 Chief Complaint: COPD exacerbation Patient is doing better shortness of breath is improved awaiting noninvasive ventilator Review of Systems Respiratory: Shortness of Breath Physical Examination - Vital Signs Temperature: 97.8 F Blood Pressure: 129/67 Pulse: 73 Respirations: 18 Pulse Ox (%): 98 - Physical Exam General: Alert, In no apparent distress, Oriented x3 Respiratory: Clear to auscultation bilaterally, Diminished Cardiovascular: No edema, Regular rate/rhythm Assessment And Plan - Current Problems (Diagnosis) (1) Respiratory failure with hypoxia and hypercapnia Current Visit: Yes Status: Acute Plan: Patient is doing better noninvasive ventilator order plan for discharge once to set up patient is going to benefit from nicotine patch and Wellbutrin counseled about stopping smoking add Daliresp Qualifiers: Chronicity: acute on chronic Qualified Code(s): J96.21 - Acute and chronic respiratory failure with hypoxia; J96.22 - Acute and chronic respiratory failure with hypercapnia
--- NOTE | 2021-07-26 12:44 | P.PN ---
Subjective Date of Service: 07/26/21 Chief Complaint: COPD exacerbation Subjective: No new changes (BiPAP overnight, on nasal cannula O2 now) Physical Examination - Vital Signs Temperature: 97.8 F Blood Pressure: 129/67 Pulse: 73 Respirations: 18 Pulse Ox (%): 98 Assessment And Plan Physician Review: Patient Assessed, Agree with Above Assessment and Plan Physician Review Additional Text: - Physical Exam General: Alert, In no apparent distress, Oriented x3 HEENT: Atraumatic, PERRLA, EOMI, Sclerae nonicteric Neck: Supple, 2+ carotid pulse no bruit, No LAD, Without JVD or thyroid abnormality Respiratory: Crackles/rales Cardiovascular: Regular rate/rhythm, Normal S1 S2, Edema (1+ pitting edema) Gastrointestinal: Normal bowel sounds, No tenderness Musculoskeletal: No tenderness Integumentary: No rashes Neurological: Normal speech, Normal strength at 5/5 x4 extr, Normal tone, Normal affect - Studies Assessment and Plan - Problems (Diagnosis) (1) CHF (congestive heart failure) Current Visit: Yes Status: Acute Qualifiers: Heart failure type: unspecified Heart failure chronicity: acute Qualified Code(s): I50.9 - Heart failure, unspecified (2) Type 2 diabetes mellitus Current Visit: Yes Status: Chronic Qualifiers: Diabetes mellitus chcf insulin use: without chcf use Diabetes mellitus complication status: without complication Qualified Code(s): E11.9 - Type 2 diabetes mellitus without complications (3) COPD exacerbation Current Visit: Yes Status: Acute (4) Respiratory failure with hypoxia and hypercapnia Current Visit: Yes Status: Acute Qualifiers: Chronicity: acute on chronic Qualified Code(s): J96.21 - Acute and chronic respiratory failure with hypoxia; J96.22 - Acute and chronic respiratory failure with hypercapnia Plan -Patient admitted for chronic respiratory failure with advanced COPD and requiring BiPAP Continue nocturnal BiPAP use Pulmonary discussed with and have evaluated patient, outpatient home CPAP/ BiPAP DME ordered Can discharge patient home when home equipment set up Patient was on 4 L nasal cannula -Chest x-ray showed mild CHF and patient had 1+ pitting edema. -Continue diuresis and MDI inhalers -Cardiology and pulmonology consulted. DVT PPx: Lovenox Code: Full Discharge Plan: Home Plan to discharge in: Possibly in 1-2 days - Advance Directives Does patient have a Living Will: No Does patient have a Durable POA for Healthcare: No - Code Status/Comfort Care Code Status Assessed: Yes Time Spent Managing PTS Care (In Minutes): 35
--- NOTE | 2021-07-26 20:38 | CON ---
Date of Consultation: 07/25/2021 Reason For Consultation: Heart failure. History Of Present Illness: 71-year-old male, history of COPD, presented to the emergency room with worsening shortness of breath, orthopnea, and lower extremity edema. The patient has COPD, was using oxygen at home, but with this episode it was not helping, so presented to the emergency room. He de nies having active chest pain. Received a dose of Lasix and the patient is feeling much better alrea dy. Past Medical History: COPD, diabetes, hypertension, sleep apnea. Medications: Refer reconciliation sheet for detailed list. Allergies: NO KNOWN DRUG ALLERGIES. Family History: No premature coronary artery disease or cancer. Social History: Does not drink, but he smokes a pack of cigarettes a day. Does not use any drugs. Review of Systems: All systems reviewed and they were negative except what is mentioned in HPI. Physical Examination: Vital Signs: Reviewed. Heck and Neck: Pupils are equal, reactive to light. Intact eye movements. Positive JVD. No cervic al lymphadenopathy. Neck is supple. Thyroid is not enlarged. Lungs: Crackles in both bases. No accessory muscle use or muscle retraction. Heart: Regular rate and rhythm with no extra sounds. Abdomen: Soft, nontender. Bowel sounds positive. No organomegaly. No masses or hernia. No rigidi ty or rebound. Extremities: 2 to 3+ edema bilaterally. No clubbing, cyanosis. Skin: No rashes. Neurologic: Alert, awake, oriented x3. No acute focal deficits appreciated. Lymph Nodes: No cervical or axillary lymphadenopathy. Investigations: White blood count 12.7, hemoglobin 16.4. Sodium is 137, CO2 is 43, creatinine 0.79. On the chest x-ray is CHF picture. Assessment And Recommendations: Shortness of breath with respiratory failure, signs and symptoms lik padmaja due to combination of acute congestive heart failure plus chronic obstructive pulmonary disease. The patient responded well to Lasix; however, CO2 level is very high. I agree with acetazolamide 25 0 mg IV q.12 hours. Monitor daily BUN, creatinine, and CO2 level. Once the CO2 level drops to deangelo l values, then resume Lasix and obtain an echocardiogram to evaluate the heart function. Further rec ommendations accordingly. Please restrict fluids to less than 1500 mL of fluids and low-salt diet, a nd daily weight. Thank you for the consult. SR/MODL Voice ID: [id number] Report ID: [id number]
[2021-07-27] MEDS: IPRATROPIUM BROM 0.5MG/2.5ML NEB SCH ×4 (01:55→19:15)
[2021-07-27 06:27] LABS: Absolute Lymphocytes (CBC) 0.4 K/uL (0.7-4.9); Hematocrit 57.3 % (39.6-49.0); Lymphocytes % 4.4 % (15.3-44.8); MPV 7.8 fL (7.6-11.3); RBC Red Blood Cell Count 5.62 M/uL (4.33-5.43)
--- NOTE | 2021-07-27 07:04 | ECHO ---
HEIGHT: 5 ft 7 in WEIGHT: 249 lb 0 oz DATE OF STUDY: 07/26/[address]: Lynda Lowe 2-DIMENSIONAL: YES M.MODE: YES DOPPLER: YES COLOR FLOW: YES TDS: NO PORTABLE: NO DEFINITY: NO BUBBLE STUDY: NO DIAGNOSIS: CONGESTIVE HEART FAILURE CARDIAC HISTORY: CATHERIZATION: SURGERY: PROSTHETIC VALVE: PACEMAKER: MEASUREMENTS (cm) DIASTOLIC (NORMALS) SYSTOLIC (NORMALS) IVSd 1.1 (0.6-1.2) LA Diam 4.8 (1.9-4.0) LVEF 60-65% LVIDd 4.7 (3.5-5.7) LVIDs 2.7 (2.0-3.5) %FS 42% LVPWd 0.9 (0.6-1.2) Ao Diam 2.8 (2.0-3.7) 2 DIMENSIONAL ASSESSMENT: RIGHT ATRIUM: NORMAL LEFT ATRIUM: NORMAL RIGHT VENTRICLE: NORMAL LEFT VENTRICLE: NORMAL TRICUSPID VALVE: MILD TRICUSPID REGURGITATION MITRAL VALVE: NORMAL PULMONIC VALVE: NORMAL AORTIC VALVE: NORMAL PERICARDIAL EFFUSION: NONE AORTIC ROOT: NORMAL LEFT VENTRICULAR WALL MOTION: NORMAL. DOPPLER/COLOR FLOW: SEE BELOW. COMMENTS: NORMAL LEFT VENTRICULAR EJECTION FRACTION 60-65%. DIASTOLIC DYSFUNCTION. MODERATE PULMONARY HYPERTENSION WITH RIGHT VENTRICULAR SYSTOLIC PRESSURE OF 50-55mmHg. MILD TRICUSPID REGURGITATION. TECHNOLOGIST: ANTONI BROWN
[2021-07-27 07:29] LABS: Bilirubin Total 0.4 mg/dL (0.2-1.0); Potassium 4.9 mmol/L (3.5-5.1); Protein, Total 6.8 g/dL (6.4-8.2)
[2021-07-27] MEDS: ALBUTEROL 2.5 MG/3 ML NEB SOL NEB PRN ×2 (07:40→19:15)
[2021-07-27] MEDS: BUPROPRION HCL S.R. 150MG TAB PO SCH ×2 (08:42→20:00)
[2021-07-27] MEDS: AZITHROMYCIN 250 MG TAB PO SCH (08:42)
[2021-07-27] MEDS: ATORVASTATIN 10 MG TAB PO SCH (08:43)
[2021-07-27] MEDS: lisinopriL 10 MG TAB PO SCH (08:43)
[2021-07-27] MEDS: acetaZOLAMIDE 250 MG TAB PO SCH ×2 (08:43→20:00)
[2021-07-27] MEDS: ROFLUMILAST 500 MCG TABLET PO SCH (08:43)
[2021-07-27] MEDS: predniSONE 20 MG TAB PO SCH ×2 (08:44→20:00)
[2021-07-27] MEDS: METFORMIN HCL 500 MG TAB PO SCH ×2 (08:44→20:00)
[2021-07-27] MEDS: ENOXAPARIN 40 MG/0.4 ML SQ SCH (08:44)
[2021-07-27] MEDS: NICOTINE 21 MG/PAT TD SCH (08:45)
--- NOTE | 2021-07-27 12:17 | P.PN ---
Subjective Date of Service: 07/27/21 Chief Complaint: COPD exacerbation Patient is doing well he is improved applied for noninvasive ventilator wants to go home Review of Systems Respiratory: Shortness of Breath Physical Examination - Vital Signs Temperature: 98.0 F Blood Pressure: 132/62 Pulse: 71 Respirations: 18 Pulse Ox (%): 100 - Physical Exam General: Alert, In no apparent distress, Oriented x3 Respiratory: Diminished, Expiratory wheezes Assessment And Plan - Current Problems (Diagnosis) (1) Respiratory failure with hypoxia and hypercapnia Current Visit: Yes Status: Acute Plan: Patient is doing much better plan to discharge home he needs help with smoking cessation reviewed urine nicotine patch also sent in some [facility] follow-up with me in 2 weeks titrate sat to 90% Qualifiers: Chronicity: acute on chronic Qualified Code(s): J96.21 - Acute and chronic respiratory failure with hypoxia; J96.22 - Acute and chronic respiratory failure with hypercapnia Physician Review: Patient Assessed, Agree with Above Assessment and Plan
--- NOTE | 2021-07-27 16:03 | P.PN ---
Subjective Date of Service: 07/27/21 Chief Complaint: COPD exacerbation Subjective: Improving Physical Examination - Vital Signs Temperature: 98.0 F Blood Pressure: 132/62 Pulse: 71 Respirations: 18 Pulse Ox (%): 100 - Physical Exam General: In no apparent distress, Cooperative Respiratory: Expiratory wheezes, Other (Breathing is not labored. Mild expiratory wheezing throughout) Cardiovascular: Normal pulses, Regular rate/rhythm, Normal S1 S2, Other (2+ pitting edema bilaterally), Edema Musculoskeletal: Swelling Assessment And Plan - Current Problems (Diagnosis) (1) CHF (congestive heart failure) Current Visit: Yes Status: Acute Qualifiers: Heart failure type: unspecified Heart failure chronicity: acute Qualified Code(s): I50.9 - Heart failure, unspecified (2) COPD exacerbation Current Visit: Yes Status: Acute (3) Respiratory failure with hypoxia and hypercapnia Current Visit: Yes Status: Acute Qualifiers: Chronicity: acute on chronic Qualified Code(s): J96.21 - Acute and chronic respiratory failure with hypoxia; J96.22 - Acute and chronic respiratory failure with hypercapnia (4) Type 2 diabetes mellitus Current Visit: Yes Status: Chronic Qualifiers: Diabetes mellitus alf insulin use: without local company intermodal truck driver use Diabetes mellitus complication status: without complication Qualified Code(s): E11.9 - Type 2 diabetes mellitus without complications Physician Review: Patient Assessed, Agree with Above Assessment and Plan Physician Review Additional Text: 07/27/21 16:00 Assessment Patient is a 71-year-old male with a past medical history of severe COPD previously on oxygen. He was admitted with acute COPD exacerbation. Is currently on baseline oxygen requirement. Acute respiratory failure COPD exacerbation Possible CHF exacerbation Plan: Plan Continue supplemental oxygen via nasal cannula, alternate with nocturnal BiPAP. Patient will need NIV prior to discharge. Outpatient CPAP/BiPAP DME ordered, pending insurance approval. Discussed this case during MDR. Continue nebulizer therapy He is currently net negative. Continued oral Diamox He has been seen by cardiology during this admission and was cleared for discharge Anticipating discharge tomorrow if insurance approves outpatient NIV DVT PPx: Lovenox Code: Full
[2021-07-28] MEDS: ALBUTEROL 2.5 MG/3 ML NEB SOL NEB PRN ×2 (01:00→20:10)
[2021-07-28] MEDS: IPRATROPIUM BROM 0.5MG/2.5ML NEB SCH ×4 (01:00→20:10)
[2021-07-28 04:40] LABS: Absolute Lymphocytes (CBC) 0.4 K/uL (0.7-4.9); Hematocrit 52.9 % (39.6-49.0); Lymphocytes % 4.7 % (15.3-44.8); MPV 7.7 fL (7.6-11.3)
[2021-07-28 04:56] LABS: ALT/SGPT 36 U/L (12-78); AST/SGOT 17 U/L (15-37); Alkaline Phosphatase 66 U/L (45-117); BUN Blood Urea Nitrogen 19 mg/dL (7-18); Bicarbonate 31 mmol/L (21-32); Bilirubin Total 0.5 mg/dL (0.2-1.0); Glucose Level 154 mg/dL (74-106); Potassium 4.9 mmol/L (3.5-5.1); Protein, Total 6.6 g/dL (6.4-8.2); Sodium Level 139 mmol/L (136-145)
[2021-07-28] MEDS: ACETAMINOPHEN 500 MG TAB PO PRN ×3 (07:34→21:04)
[2021-07-28] MEDS: ENOXAPARIN 40 MG/0.4 ML SQ SCH (08:48)
[2021-07-28] MEDS: AZITHROMYCIN 250 MG TAB PO SCH (08:49)
[2021-07-28] MEDS: predniSONE 20 MG TAB PO SCH ×2 (08:50→20:53)
[2021-07-28] MEDS: ROFLUMILAST 500 MCG TABLET PO SCH (08:50)
[2021-07-28] MEDS: acetaZOLAMIDE 250 MG TAB PO SCH ×2 (08:50→20:53)
[2021-07-28] MEDS: METFORMIN HCL 500 MG TAB PO SCH ×2 (08:51→20:53)
[2021-07-28] MEDS: ATORVASTATIN 10 MG TAB PO SCH (08:51)
[2021-07-28] MEDS: BUPROPRION HCL S.R. 150MG TAB PO SCH ×2 (08:51→20:53)
[2021-07-28] MEDS: NICOTINE 21 MG/PAT TD SCH (08:52)
[2021-07-28] MEDS: lisinopriL 10 MG TAB PO SCH (08:53)
--- NOTE | 2021-07-28 14:51 | P.PN ---
Subjective Date of Service: 07/28/21 Chief Complaint: COPD exacerbation Subjective: Improving Physical Examination - Vital Signs Temperature: 97.2 F Blood Pressure: 126/60 Pulse: 70 Respirations: 21 Pulse Ox (%): 95 - Physical Exam General: In no apparent distress HEENT: Atraumatic, Normocephalic Respiratory: Expiratory wheezes (diffuse expiratory wheezing) Cardiovascular: Regular rate/rhythm, Normal S1 S2, Edema Neurological: Normal speech, Normal affect Assessment And Plan - Current Problems (Diagnosis) (1) CHF (congestive heart failure) Current Visit: Yes Status: Acute Qualifiers: Heart failure type: unspecified Heart failure chronicity: acute Qualified Code(s): I50.9 - Heart failure, unspecified (2) COPD exacerbation Current Visit: Yes Status: Acute (3) Respiratory failure with hypoxia and hypercapnia Current Visit: Yes Status: Acute Qualifiers: Chronicity: acute on chronic Qualified Code(s): J96.21 - Acute and chronic respiratory failure with hypoxia; J96.22 - Acute and chronic respiratory failure with hypercapnia (4) Type 2 diabetes mellitus Current Visit: Yes Status: Chronic Qualifiers: Diabetes mellitus engineer second assistant insulin use: without engineer second assistant use Diabetes mellitus complication status: without complication Qualified Code(s): E11.9 - Type 2 diabetes mellitus without complications Physician Review: Patient Assessed, Agree with Above Assessment and Plan Physician Review Additional Text: 07/27/21 16:00 Assessment Patient is a 71-year-old male with a past medical history of severe COPD previously on oxygen. He was admitted with acute COPD exacerbation. Is currently on baseline oxygen requirement. Acute respiratory failure COPD exacerbation Possible CHF exacerbation Plan: Plan Patient is medically cleared for discharge He will need home health set up along with and IV upon discharge. Discussed case during MDR. We are making the necessary arrangement He is very frustrated waiting Continue nebulizer therapy Continue Diamox He has been seen by cardiology during this admission and was cleared for discharge Discharge once we have NIV available. DVT PPx: Lovenox Code: Full 07/28/21 14:49
[2021-07-29] MEDS: IPRATROPIUM BROM 0.5MG/2.5ML NEB SCH ×3 (02:15→13:40)
[2021-07-29] MEDS: ACETAMINOPHEN 500 MG TAB PO PRN ×2 (04:28→09:53)
[2021-07-29 08:06] VITALS: O2SAT 96
[2021-07-29] MEDS: NICOTINE 21 MG/PAT TD SCH (09:00)
[2021-07-29] MEDS: ROFLUMILAST 500 MCG TABLET PO SCH (09:50)
[2021-07-29] MEDS: lisinopriL 10 MG TAB PO SCH (09:50)
[2021-07-29] MEDS: BUPROPRION HCL S.R. 150MG TAB PO SCH (09:52)
[2021-07-29] MEDS: AZITHROMYCIN 250 MG TAB PO SCH (09:52)
[2021-07-29] MEDS: ENOXAPARIN 40 MG/0.4 ML SQ SCH (09:53)
[2021-07-29] MEDS: predniSONE 20 MG TAB PO SCH (09:53)
[2021-07-29] MEDS: METFORMIN HCL 500 MG TAB PO SCH (09:53)
[2021-07-29] MEDS: ATORVASTATIN 10 MG TAB PO SCH (09:53)
[2021-07-29] MEDS: acetaZOLAMIDE 250 MG TAB PO SCH (09:53)
[2021-07-29 12:49] VITALS: BP 124/74; TEMP 97.3
--- NOTE | 2021-07-29 13:23 | P.DS ---
Admission Date: 07/25/21 Discharge Date: 07/29/21 Disposition: MD HOME/HOME HEALTH CARE Reason for Admission: COPD exacerbation - Problems (1) CHF (congestive heart failure) Current Visit: Yes Status: Acute Qualifiers: Heart failure type: unspecified Heart failure chronicity: acute Qualified Code(s): I50.9 - Heart failure, unspecified (2) COPD exacerbation Current Visit: Yes Status: Acute (3) Respiratory failure with hypoxia and hypercapnia Current Visit: Yes Status: Acute Qualifiers: Chronicity: acute on chronic Qualified Code(s): J96.21 - Acute and chronic respiratory failure with hypoxia; J96.22 - Acute and chronic respiratory failure with hypercapnia (4) Type 2 diabetes mellitus Current Visit: Yes Status: Chronic Qualifiers: Diabetes mellitus mcc insulin use: without mcc use Diabetes mellitus complication status: without complication Qualified Code(s): E11.9 - Type 2 diabetes mellitus without complications Hospital Course: Patient is a 71-year-old male with a past medical history of severe COPD and CHF.. He was admitted with acute COPD exacerbation with possible CHF exacerbation. He did well on with diuresis and nebulizer therapy. He will require supplemental oxygen. We're also making arrangement for noninvasive ventilation. He took some time to clear insurance. Patient will be discharged without it but on supplemental oxygen only pending insurance approval for NIV. Vital Signs/Physical Exam: Temp Pulse Resp BP Pulse Ox 97.3 F 89 18 124/74 94 07/29/21 12:00 07/29/21 12:00 07/29/21 12:00 07/29/21 12:00 07/29/21 12:00 General: Alert, In no apparent distress, Cooperative Respiratory: Clear to auscultation bilaterally, Normal air movement Cardiovascular: Regular rate/rhythm, Normal S1 S2 Neurological: Normal gait, Normal speech, Normal affect Laboratory Data at Discharge: WBC 9.00 K/uL (4.3-10.9) 07/28/21 04:05 Hgb 16.8 g/dL (13.6-17.9) 07/28/21 04:05 Hct 52.9 % (39.6-49.0) H 07/28/21 04:05 Plt Count 181 K/uL (152-406) 07/28/21 04:05 PT 11.9 SECONDS (9.5-12.5) 07/24/21 22:15 INR 1.03 07/24/21 22:15 Sodium 139 mmol/L (136-145) 07/28/21 04:05 Potassium 4.9 mmol/L (3.5-5.1) 07/28/21 04:05 BUN 19 mg/dL (7-18) H 07/28/21 04:05 Creatinine 0.67 mg/dL (0.55-1.3) 07/28/21 04:05 Glucose 154 mg/dL (74-106) H 07/28/21 04:05 Magnesium 2.4 mg/dL (1.8-2.4) 07/24/21 22:15 Total Bilirubin 0.5 mg/dL (0.2-1.0) 07/28/21 04:05 AST 17 U/L (15-37) 07/28/21 04:05 ALT 36 U/L (12-78) 07/28/21 04:05 Alkaline Phosphatase 66 U/L (45-117) 07/28/21 04:05 Home Medications: Glycopyrrolate/Formoterol Fum [Bevespi Aerosphere Inhaler] 10.7 gm IH BID 02/04/19 Metformin HCl [Glucophage] 500 mg PO BID 02/04/19 Simvastatin 10 mg PO DAILY 02/04/19 lisinopriL [Prinivil*] 10 mg PO DAILY 02/04/19 Codeine/APAP [Tylenol #3*] 1 tab PO Q4HP PRN #30 tab 02/06/19 Albuterol Neb [Proventil 0.083% Neb Soln] 2.5 mg NEB [id number] #60 amp 07/24/21 Ipratropium Neb [Atrovent*] 0.5 mg NEB [id number] #60 amp 07/24/21 predniSONE [Prednisone*] 20 mg PO BID #10 tab 07/24/21 Bupropion *Xl* [Wellbutrin XL] 150 mg PO BID 30 Days #60 tab 07/26/21 Nicotine [Nicoderm] 1 patch TD DAILY #30 patch.td24 07/26/21 Roflumilast [Daliresp] 500 mcg PO DAILY 30 Days #30 tablet 07/26/21 New Medications: Roflumilast [Daliresp] 500 mcg PO DAILY 30 Days #30 tablet Nicotine [Nicoderm] 1 patch TD DAILY #30 patch.td24 Bupropion *Xl* [Wellbutrin XL] 150 mg PO BID 30 Days #60 tab Followup: Unknown,U [Primary Care Provider] -
--- NOTE | 2021-07-31 14:44 | PN ---
Date of Progress Note: 07/27/2021 Subjective: Mr. Del Rosario is 71, has been followed by Dr. Terrell and Dr. Riley for congestive heart f ailure and COPD. He is on Diamox and Lasix, has improved significantly since admission with signific ant diuresis and improvement in oxygen level. Echocardiogram showed an ejection fraction of 65%, armond stolic congestive heart failure with moderate pulmonary hypertension. I agree with his present regim en. He can go home whenever it is okay with Dr. Riley. He should be on Diamox and Lasix as an out patient. He should probably be on a low dose carvedilol as well. NB/MODL Voice ID: [id number] Report ID: [id number]
== END 2021-07-29 16:20 | disposition home health service (06) | DRG 291 ==
LOC: ER 21:14 → ERHOLD 07-25 00:06 → 2ND 07-25 00:44
PROVIDERS: ADMIT Hospitalist; ATTEND Hospitalist
PROC: 5A09357 Assistance with Respiratory Ventilation, Less than 24 Consecutive Hours, Continuous Positive Airway Pressure (ICD-10-PCS; principal; 2021-07-25)
DX: I11.0 Hypertensive heart disease with heart failure (principal); J96.22 Acute and chronic respiratory failure with hypercapnia; I50.31 Acute diastolic (congestive) heart failure; J96.21 Acute and chronic respiratory failure with hypoxia; J44.1 Chronic obstructive pulmonary disease with (acute) exacerbation; E11.9 Type 2 diabetes mellitus without complications; I27.20 Pulmonary hypertension, unspecified; F17.210 Nicotine dependence, cigarettes, uncomplicated; Z99.81 Dependence on supplemental oxygen; Z23 Encounter for immunization; Z20.822 Contact with and (suspected) exposure to COVID-19
CPT/HCPCS: 36415; 71045; 80048; 80053; 80076; 81003; 82805; 82947; 83735; 83880; 84484; 85025; 85610; 90471; 90732; 93005; 93306; 94640; 94660; 94760; 96374; 96375; 99285; J1120; J1650; J2920; J2930; J7512; U0003

== ENCOUNTER → 2024-06-27 | Day surgery (SDC) | payer OTHER ==
[2024-06-26 16:01] LABS: Absolute Basophils 0.1 K/uL (0-0.5); Absolute Neutrophil 8.2 K/uL (1.8-8.0); Basophils % 0.9 % (0-1.3); Eosinophils % 0.4 % (0-4.4); Hematocrit 42.7 % (39.6-49.0); Hemoglobin 14.5 g/dL (13.6-17.9); Lymphocytes % 17.5 % (15.3-44.8); MCH 31.5 pg (27.0-35.0); MCV 92.6 fL (80-100); MPV 7.7 fL (7.6-11.3); Monocytes % 8.5 % (3.3-12.3); Neutrophils % 72.7 % (41.7-73.7); Platelets 325 thou/uL (152-406); RBC Red Blood Cell Count 4.61 M/uL (4.33-5.43); Red Cell Distribution Width 13.3 % (12.1-15.2)
[2024-06-26 16:17] LABS: Anion Gap 7.9 mEq/L (5.0-15.0); Potassium 3.9 mEq/L (3.5-5.1)
[~2024-06-27] MED LIST: EPHEDRINE SULF 50 MG/ML VIAL ONE; NA CHLORIDE 0.9% 1,000 ML ONE; propofoL 200 MG/20 ML VIAL IV ONE
[2024-06-27] MEDS: NA CHLORIDE 0.9% 1,000 ML ONE (10:02)
[2024-06-27 10:59] VITALS: O2SAT 95
[2024-06-27 11:00] VITALS: BP 119/67; TEMP 98.7
== END ==
LOC: OR 06-26 14:15
PROVIDERS: ATTEND Internal Medicine Gastroenterology
PROC: 0DB88ZX Excision of Small Intestine, Via Natural or Artificial Opening Endoscopic, Diagnostic (ICD-10-PCS; 2024-06-27)
PROC: 0DB68ZX Excision of Stomach, Via Natural or Artificial Opening Endoscopic, Diagnostic (ICD-10-PCS; 2024-06-27)
PROC: 0DB58ZX Excision of Esophagus, Via Natural or Artificial Opening Endoscopic, Diagnostic (ICD-10-PCS; 2024-06-27)
PROC: 0DB98ZX Excision of Duodenum, Via Natural or Artificial Opening Endoscopic, Diagnostic (ICD-10-PCS; principal; 2024-06-27 09:15)
DX: R10.13 Epigastric pain (principal); Z01.818 Encounter for other preprocedural examination; R19.4 Change in bowel habit; K22.9 Disease of esophagus, unspecified; K29.50 Unspecified chronic gastritis without bleeding; K21.9 Gastro-esophageal reflux disease without esophagitis
CPT/HCPCS: 36415; 80048; 82947; 85025; 88305; 88312; J2704; J7030

== ENCOUNTER 2024-09-17 07:22 | Day surgery (SDC) | payer OTHER ==
[2024-09-12 11:45] LABS: Absolute Basophils 0.1 K/uL (0-0.5); Absolute Eosinophils 0.1 K/uL (0-0.5); Absolute Lymphocytes (CBC) 3.1 K/uL (0.7-4.9); Absolute Monocytes 0.9 K/uL (0.1-1.3); Absolute Neutrophil 5.3 K/uL (1.8-8.0); Eosinophils % 0.6 % (0-4.4); Hematocrit 46.8 % (39.6-49.0); Hemoglobin 15.7 g/dL (13.6-17.9); Lymphocytes % 33.1 % (15.3-44.8); MCH 31.5 pg (27.0-35.0); MCHC 33.6 g/dL (32.0-36.0); MCV 93.8 fL (80-100); MPV 8.4 fL (7.6-11.3); Monocytes % 9.5 % (3.3-12.3); Neutrophils % 55.8 % (41.7-73.7); Nucleated Red Blood Cells % 0.1 % (0-0); Platelets 246 thou/uL (152-406); RBC Red Blood Cell Count 4.99 M/uL (4.33-5.43); Red Cell Distribution Width 13.8 % (12.1-15.2)
[2024-09-17] MEDS ORDERED: NA CHLORIDE 0.9% 1,000 ML ONE (07:52)
[2024-09-17] MEDS ORDERED: propofoL 200 MG/20 ML VIAL IV ONE (08:25)
[2024-09-17] MEDS ORDERED: LIDOCAINE 1% MPF 30 ML VIAL ONE (08:25)
[2024-09-17 10:10] VITALS: BP 159/69; TEMP 98; O2SAT 98
== END 2024-09-17 10:03 | disposition home or self-care (01) ==
LOC: OR 07:22
PROVIDERS: ATTEND Internal Medicine Gastroenterology
PROC: 0DBN8ZX Excision of Sigmoid Colon, Via Natural or Artificial Opening Endoscopic, Diagnostic (ICD-10-PCS; principal; 2024-09-17 08:30)
DX: Z12.11 Encounter for screening for malignant neoplasm of colon (principal); K63.5 Polyp of colon
CPT/HCPCS: 45385; 85025; 80048; 36415; 82947; 88305; J2704; J2003; J7030